=== PATIENT | male | born 1970 | race Caucasian/White ===

== ENCOUNTER → 2018-10-17 14:50 | Outpatient (CLI) | payer MEDICAID, SELFPAY ==
--- NOTE | 2018-10-17 14:52 | MR_ITS ---
MR knee RT wo con HISTORY: Right knee pain with instability ITS.REASON: RIGHT KNEE PAIN, RECURRENT RT KNEE INSTABILITY ORDERING PHYSICIAN: Jazmyn Quintanilla APRN PATIENT AGE: 48 years Comparison: None TECHNIQUE: Standard multiplanar multiecho sequences are performed without contrast. FINDINGS: The cruciate ligaments, collateral ligaments, patellar tendon, quadriceps tendon are intact. No meniscal tear. The patellar cartilage is well preserved. No fracture or dislocation. No bone bruise apparent. There is a small amount of fluid within the knee joint. A small subarticular cyst involves the head of the fibula measuring 11 x 5 mm. There is edema involving the medial head of the gastrocnemius at the knee joint with some heterogeneous echogenicity and irregularity of some of the fibers superiorly suggesting a partial tear of the medial head of the gastrocnemius. There is some subcutaneous edema in this region as well. This involves the medial aspect of the medial head of the gastrocnemius. IMPRESSION: 1. No evidence of internal derangement of the knee. 2. The findings are compatible with partial tear of the medial aspect of the medial head of the gastrocnemius muscle with underlying edema within the medial and proximal aspect of the leg.
== END ==
PROVIDERS: PCP Family Medicine; Visit Provider Nurse Practitioner Family
DX: M25.561 Pain in right knee (principal); M23.51 Chronic instability of knee, right knee
CPT/HCPCS: 73721

== ENCOUNTER 2018-10-18 11:02 | Outpatient (RCR) | payer MEDICAID, SELFPAY | END 2018-10-18 11:10 | disposition home or self-care (01) | LOC: PT 11:02 | PROVIDERS: Visit Provider Orthopaedic Surgery | DX: S86.111A Strain of other muscle(s) and tendon(s) of posterior muscle group at lower leg level, right leg, initial encounter (principal) | CPT/HCPCS: 97760 ==

== ENCOUNTER → 2020-01-12 11:36 | Outpatient (CLI) | payer OTHER, SELFPAY ==
--- NOTE | 2020-01-12 11:46 | XR_ITS ---
PROCEDURE: XR SHOULDER RT MIN 2V CLINICAL INDICATION: R SHOULDER PAIN, post fall in November. COMPARISON: No exams were available for comparison FINDINGS: No fracture or dislocation. No lytic or blastic change. There is normal mineralization. Mild degenerative arthritic changes are seen of the acromioclavicular and glenohumeral articulations of the right shoulder. Other findings:None. The visualized soft tissue structures are unremarkable. IMPRESSION: No acute findings. Mild degenerative right shoulder arthrosis. Dictated by: Sade Lozano 01/12/2020 12:20 Electronically signed by Sade Lozano in [place] 01/12/2020 12:20
== END ==
PROVIDERS: PCP Family Medicine; Visit Provider Nurse Practitioner
DX: M25.511 Pain in right shoulder (principal)
CPT/HCPCS: 73030

== ENCOUNTER → 2020-01-28 08:49 | Outpatient (CLI) | payer OTHER, SELFPAY ==
--- NOTE | 2020-01-28 08:53 | CA_ITS ---
APPROVED REPORT Rug Dyer Helper: KATELYN Laterality: Bilateral Study Quality: Good Indications: DIZZINESS HTN R/O TIA Doppler Spectral Velocity Analysis dICA (R) 73.40/32.00 cm/s dICA (L) 58.80/22.50 cm/s Laith (R) 74.10/17.40 cm/s Laith (L) 79.00/30.20 cm/s pICA (R) 79.70/25.40 cm/s pICA (L) 71.90/24.00 cm/s dCCA (R) 97.50/25.60 cm/s dCCA (L) 98.10/36.30 cm/s pCCA (R) 152.70/35.70 cm/s pCCA (L) 101.10/25.60 cm/s Vert (R) 56.30/16.60 cm/s Vert (L) 64.90/22.00 cm/s ICA/CCA 0.80 ICA/CCA 0.80 Findings The right carotid arterial system appeared to be normal without stenosis of the bulb or internal carotid artery. The left carotid arterial system appeared to be normal without stenosis of the bulb or internal carotid artery. Antegrade flow seen bilateral vertebral arteries. Conclusion The right carotid arterial system appeared to be normal without stenosis of the bulb or internal carotid artery. The left carotid arterial system appeared to be normal without stenosis of the bulb or internal carotid artery. Antegrade flow seen bilateral vertebral arteries. Electronically signed by : Sam Patterson MD 01/28/2020 16:15:39
== END ==
PROVIDERS: PCP Family Medicine; Visit Provider Nurse Practitioner
DX: R42 Dizziness and giddiness (principal); I10 Essential (primary) hypertension; H81.09 Meniere's disease, unspecified ear
CPT/HCPCS: 93880

== ENCOUNTER → 2020-02-11 15:28 | Outpatient (CLI) | payer OTHER, SELFPAY ==
--- NOTE | 2020-02-11 15:33 | MR_ITS ---
PROCEDURE: MR HEAD/BRAIN WO CON CLINICAL INDICATION: DIZZINESS, HEADACHE Rt arm drawn up and numbness, covered in sweat x1 month ago, headache, dizziness, blurred vision during episode. COMPARISON: CT HDWO CT HEAD W/O CONTRAST from 08/18/2015 TECHNIQUE: Routine multiplanar multi echo sequences are performed without gadolinium enhancement. FINDINGS: No midline shift, mass effect, intracranial hemorrhage, or hydrocephalus. There is no evidence of acute infarction. The cerebellopontine angles, cerebellum, and brainstem are unremarkable. There are some scattered T2 white matter hyperintensities which are nonspecific. These do not demonstrate restricted diffusion. The pituitary, optic chiasm, corpus callosum, and craniocervical junction have an unremarkable appearance. No mastoid effusion or sinus air-fluid level. There is opacification of a right posterior ethmoid air cell chronic in nature IMPRESSION: 1. No acute intracranial findings. 2. Nonspecific small T2 white matter hyperintensities. Differential diagnosis would include small ischemic gliotic foci or sequela from migraine headache or demyelinating process. 3. Chronic opacified right posterior ethmoid air cell Dictated by: Sam Patterson MD 02/12/2020 09:04 Sam Patterson MD in [place] 02/12/2020 09:04
== END ==
PROVIDERS: PCP Family Medicine; Visit Provider Nurse Practitioner
DX: R51 Headache (principal); R42 Dizziness and giddiness
CPT/HCPCS: 70551

== ENCOUNTER → 2020-02-13 13:34 | Outpatient (CLI) | payer OTHER, SELFPAY ==
--- NOTE | 2020-02-13 13:37 | MR_ITS ---
PROCEDURE: MR SHOULDER RT WO CON CLINICAL INDICATION: RIGHT SHOULDER PAIN S/P fall onto rt shoulder 2 months ago. Pt. States he felt a pop c/p pain and limited ROM. COMPARISON: No exams were available for comparison TECHNIQUE: Routine multiplanar multi echo sequences are performed without gadolinium enhancement. FINDINGS: There are mild osteoarthritic changes of the acromioclavicular joint with mild hypertrophy and minimal indentation upon the musculotendinous junction of the supraspinatus tendon superiorly with mild subacromial stenosis of 5 mm. There is increased T2 signal of the supraspinatus tendon with thickening of the supraspinatus tendon consistent tendinopathy/tendinosis. There does appear to be a full-thickness tear involving the posterior aspect of the supraspinatus tendon. Complete tear is not felt be present. There is some thickening with increased T2 signal the infraspinatus tendon consistent with tendinopathy/tendinosis. There is mild thickening of the subscapularis tendon with increased T2 signal consistent with tendinopathy/tendinosis. The teres minor tendon is intact. The bicipital tendon appears in place. Small amount fluid is present along the bicipital tendon sheath. There is mild superior location of the humeral head with a small shoulder joint effusion no definite labral tear. IMPRESSION: 1. Osteoarthritic changes of the acromioclavicular joint with mild hypertrophy and minimal impingement upon the musculotendinous junction of the supraspinatus tendon with subacromial stenosis. 2. Tendinopathy/tendinosis of the supraspinatus infraspinatus and subscapularis tendons with a full-thickness tear involving the posterior aspect of the supraspinatus tendon. A complete tear with muscle and tendon retraction is not present. 3. Some small shoulder joint effusion with mild osteoarthritic change with a small amount fluid in the bicipital tendon sheath which may be seen with tendinitis Dictated by: Sam Patterson MD 02/15/2020 11:03 Sam Patterson MD in [place] 02/15/2020 11:03
== END ==
PROVIDERS: PCP Family Medicine; Visit Provider Nurse Practitioner
DX: M25.511 Pain in right shoulder (principal)
CPT/HCPCS: 73221

== ENCOUNTER → 2020-04-19 10:58 | Outpatient (CLI) | payer OTHER, MEDICAID, SELFPAY ==
--- NOTE | 2020-04-19 | CA_ITS ---
APPROVED REPORT EXAM: Comprehensive 2D, Doppler, and color-flow Echocardiogram Thermite Welder: Florence Jonas CRT Ht: 6 ft 1 in Wt: 219lbs BSA: 2.24 BP: 120/80 mmHg Indications: Murmur, Hypertension/HDD, Pre-Op 2D Dimensions Aortic Root 2.99 cm LVOT 1.94 cm (M/F) 1.5-2.5 M-Mode Dimensions RVDd 2.68 cm (0.9-2.6) LA Diam 2.86 cm (1.9-4.0) LVDd 4.87 cm (3.5-5.7) Ao Diam 3.87 cm (2.0-3.7) LVDs 3.33 cm (3.5-5.7) IVSd 1.67 cm (0.6-1.1) PWd 0.62 cm (0.6-1.1) EF (Teich) 59.40% FS 31.60% EDV (Teich) 111.20 mL ESV (Teich) 45.10 mL LV Diastology E Decel Time 207.00 (160-240 msec) E/A Ratio 0.91 MED E' 6.20 (< 7 cm/sec) E'/MED E' Ratio 9.73 (>14) LAT A' 7.60 cm/s Aortic Valve AO Peak GR. 5.90 mmHg Mitral Valve MV A Velocity 66.00 (40-130 cm/s) E/A Ratio 0.91 MV Decel. Time 207.00 (160-240 ms) Pulmonary Valve PV Peak Velocity 92.00 (50-150 cm/s) Tricuspid Valve TR P. Velocity 243.00 cm/s RAP Estimate 10.00 mmHg RVSP 33.60 mmHg Left Ventricle Left atrium is mildly enlarged, left ventricle is normal size, mild concentric left ventricular hypertrophy, visually estimated ejection fraction 55% with no regional wall motion abnormality. Grade 1 diastolic dysfunction seen without tissue Doppler evidence of raise left atrial pressure. Right Ventricle Right atrium and right ventricle are normal size and contractility. Aortic Valve Aortic valve is minimally thickened and fibrosed, there is no aortic stenosis or aortic insufficiency. Mitral Valve Mitral valve is grossly normal, there is mild mitral regurgitation. Tricuspid Valve Tricuspid valve grossly normal, there is mild tricuspid regurgitation, tricuspid regurgitation jet velocity is inadequate for calculation of the right ventricular systolic pressure. Pulmonic Valve Pulmonic valve is poorly visualized. Great Vessels Aortic root is normal size. Pericardium No significant pericardial effusion noted. Conclusion 1. Mildly enlarged left atrium, normal left ventricular size, mild concentric left ventricular hypertrophy, visually estimated ejection fraction 55% with no regional wall motion abnormality, grade 1 diastolic dysfunction seen without tissue Doppler evidence of raise left atrial pressure. 2. Mild mitral and tricuspid regurgitation. 3. No significant pericardial effusion noted. Electronically signed by : Evan Cohen, 04/20/2020 04:42:19
[2020-04-19 12:45] LABS: Basophils # 0.1 K/mm3 (0-0.2); Basophils % 1.6 % (0.1-2.0); Eosinophils # 0.4 K/mm3 (0.0-0.4); Eosinophils % 5.9 % (0.1-12.0); Hematocrit 48.5 % (42.0-52.0); Hemoglobin 16.7 g/dL (14.1-18.0); Lymphocytes # 1.8 K/mm3 (0.7-4.5); Lymphocytes % 23.6 % (10-50); Mean Corpuscular HGB Conc 34.4 g/dL (31.8-35.4); Mean Corpuscular Hemoglobin 30.4 pg (27.0-31.2); Mean Corpuscular Volume 88.3 fl (80-94); Monocytes # 0.5 K/mm3 (0.1-1.0); Neutrophils # 4.7 K/mm3 (1.8-7.8); Neutrophils % 62.8 % (37.0-80.0); Platelet Count 210 K/mm3 (142-424); Red Cell Distribution Width 13.3 % (11.5-17.5); White Blood Count 7.5 K/mm3 (4.8-10.8)
[2020-04-19 13:13] LABS: Chloride 101 mmol/L (98-107); Potassium 4.5 mmoL/L (3.5-5.1); Sodium 138 mmol/L (136-145)
[2020-04-19 13:15] LABS: Alanine Aminotransferase 63 U/L (12-78); Aspartate Amino Transferase 74 U/L (17-59); Blood Urea Nitrogen 9 mg/dl (9-20); Estimated Glomerular Filt Rate 90 ml/min (>60); GFR (African American) 109 ML/MIN (>60)
[2020-04-19 13:16] LABS: Albumin Level 4.6 g/dl (3.5-5.0); Albumin/Globulin Ratio 1.5 (1.1-1.8); Alkaline Phosphatase 55 U/L (38-126); Anion Gap 10.5 mEq/L (5-15); Bilirubin,Total 0.5 mg/dl (0.2-1.3); Calcium 9.7 mg/dl (8.4-10.2); Carbon Dioxide 31 mmol/L (22.0-30.0); Glucose 97 mg/dl (74-100); Total Protein,Serum 7.6 g/dl (6.3-8.2)
[2020-04-19 13:33] LABS: Activated Partial Thrombo Time 23.8 seconds (23.6-34.0); INR 1.02 (0.9-1.1); Prothrombin Time 11.3 seconds (9.4-11.8)
== END ==
PROVIDERS: PCP Family Medicine; Visit Provider Family Medicine
DX: Z01.818 Encounter for other preprocedural examination (principal); R01.1 Cardiac murmur, unspecified; I10 Essential (primary) hypertension
CPT/HCPCS: 36415; 80053; 85025; 85610; 85730; 93306

== ENCOUNTER → 2020-05-10 09:29 | Outpatient (CLI) | payer OTHER, SELFPAY ==
[2020-05-10 11:26] LABS: Coronavirus 19 IgG Antibody Negative (Negative); Coronavirus 19 IgM Antibody Negative (Negative)
--- NOTE | 2020-05-11 10:55 | HMH.ANESCL ---
[facility] Anesthesia Checklist - Patient Identification Patient Identification: Arm Band - Structural Data Admitted From: Home Planned Operative Procedure/s: right shoulder arthroscopy Consent for Planned Operative Procedure(s) Verified: Yes Verified Documents: Surgical Consent, History and Physical - NPO Status Verified Time NPO: 00:00 - Additional verifications Anesthesia Reactions: No Hx Blood Transfusions: No Blood Transfusion Reaction: No - Airway Assessment C-Spine Mobility Assessed: Yes (mp2) TMJ Mobility Assessed: Yes Dentition: Poor Dentition - Neurological Assessment Level of Consciousness: Awake, Alert - Anesthesia Plan Anesthesia Risk discussed: Yes Anesthesia Plan: Verified ASA Class: III Anesthesia Type: General w/block (ISB- risks/benefits discussed. Pt Verbalized understanding) [facility] History I have reviewed the patient's past medical history: Yes Medical History: Reports:: Cerebrovascular Accident (Pt states mild stroke ~6 yrs ago. No residual deficits), Hypertension Denies:: Cancer, Diabetes Mellitus Type 1, Diabetes Mellitus Type 2, MRSA, Seizures *Have you ever received a pneumonia vaccine?: No *Have you received a flu vaccine this season?: No Other Medical History: Reports: Arthritis. Denies: Blood Transfusion Reaction Anesthesia experience/problems:: nac Laterality Cases: Right: Other Other Surgeries: Yes: Other Amputation: No Fractures: No - *Social History Smoking Status: Never smoker Alcohol Intake: never Alcohol Intake Frequency:: a few times a month Substance Use Type: denies use *Occupational Status:: employed Housing: house Household Members: spouse *Travel in the last 8 weeks: None Family Hx:: Cancer, Hypertension
== END ==
PROVIDERS: Visit Provider Orthopaedic Surgery
DX: Z01.818 Encounter for other preprocedural examination (principal); S46.011S Strain of muscle(s) and tendon(s) of the rotator cuff of right shoulder, sequela; M19.011 Primary osteoarthritis, right shoulder
CPT/HCPCS: 36415; 86328

== ENCOUNTER 2020-05-11 09:54 | Day surgery (SDC) | payer OTHER, MEDICAID, SELFPAY ==
[2020-05-05 14:59] VITALS: BMI 28.8
[2020-05-11] VITALS (10 sets, daily range): BP systolic 116–127; BP diastolic 57–91; PULSE 60–71; RESP 10–18; TEMP 36.1–38; O2SAT 95–98
--- NOTE | 2020-05-11 11:00 | HMH.ANESCL ---
[facility] Anesthesia Checklist - Patient Identification Patient Identification: Arm Band - Structural Data Admitted From: Home Planned Operative Procedure/s: Right Shoulder Arthroscopy, SAD, RTC Repair, Poss Tenotomy vs Tenodesis Consent for Planned Operative Procedure(s) Verified: Yes Verified Documents: Surgical Consent, History and Physical - NPO Status Verified Time NPO: 00:00 - Additional verifications Anesthesia Reactions: No Hx Blood Transfusions: No Blood Transfusion Reaction: No - Airway Assessment C-Spine Mobility Assessed: Yes (mp2) TMJ Mobility Assessed: Yes Dentition: Poor Dentition - Neurological Assessment Level of Consciousness: Awake, Alert - Anesthesia Plan Anesthesia Risk discussed: Yes Anesthesia Plan: Verified ASA Class: II Anesthesia Type: General w/block (ISB-risks/benefits explained. Pt verbalizes understanding) [facility] History I have reviewed the patient's past medical history: Yes Medical History: Reports:: Cerebrovascular Accident (Pt states mild stroke ~6 yrs ago. No residual deficits), Hypertension Denies:: Cancer, Diabetes Mellitus Type 1, Diabetes Mellitus Type 2, MRSA, Seizures *Have you ever received a pneumonia vaccine?: No *Have you received a flu vaccine this season?: No Other Medical History: Reports: Arthritis. Denies: Blood Transfusion Reaction Anesthesia experience/problems:: nac Laterality Cases: Right: Other Other Surgeries: Yes: Other Amputation: No Fractures: No - *Social History Smoking Status: Never smoker Alcohol Intake: never Alcohol Intake Frequency:: a few times a month Substance Use Type: denies use *Occupational Status:: employed Housing: house Household Members: spouse *Travel in the last 8 weeks: None Family Hx:: Cancer, Hypertension
--- NOTE | 2020-05-11 17:53 | HMH.ANESI ---
[facility] Anesthesia Record Part I Intake, IV Amount: 1,400 Estimated blood loss (mL): 25 Urine output (mL): 0 Blood Products used (#): none Blood Pressure: 127/81 SaO2: 96 Pulse Rate: 71 Respiratory Rate: 10 Temperature: 97.0 F Patient is:: Drowsy, Nasal O2, Stable Stable to PACU at:: 17:55
--- NOTE | 2020-05-11 18:05 | HMH.OPNOTE ---
Date of procedure: 05/11/20 Pre-op Diagnosis:: R shoulder RTC tear Post-op Diagnosis:: R shoulder high-grade partial thickness RTC tear, LHBT tendinopathy with SLAP tear Procedure performed:: R shoulder arthroscopy, intra-articular debridement, biceps tenotomy; open RTC repair Surgeon:: Carol Shaikh MD Post Anesthesia Room Nurse(s):: Pippa Martínez ORACLE APPLICATIONS ANALYST:: Paulie Garrett Anesthesia: GETA, regional (interscalene block) Estimated blood loss (mL): 25 Clinical Note:: 50-year-old [id number] gentleman with R shoulder pain after an injury in December 2019. At that time he fell on the right shoulder and felt a pop, with persistent pain. He suffered heatstroke around the same time and was placed off work for this. When he went back light duty to work he noticed that lifting even 10 pounds was extremely painful. 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 He has had a difficult time working and has taken 6-7 Advil per day to cope with this. He has noticed a decrease in his strength as well. Medical history includes hypertension and chronic migraines in addition to M?ni?re's disease. He has no known drug allergies and takes hydrochlorothiazide and benazepril?hydrochlorothiazide daily. MRI revealed a rotator cuff tear; high-grade partial thickness versus full thickness without retraction. I discussed treatment options with the patient and given his age, dominant arm affected, and nature of his work, I recommended surgical intervention. He was sent for medical and cardiac clearance, which was obtained. I discussed the procedure with the patient, the expected perioperative and long-term outcome. I discussed the risks of surgery with the patient, including but not limited to: bleeding, infection, neurovascular damage, compartment syndrome of the upper extremity and/or torso from fluid extravasation, risk of stroke from hypotensive anesthesia in the beachchair position, risk of RTC non-healing or retearing, risk of the RTC being irrepairable, risk of continued pain and post-operative stiffness, and the risk that additional procedures may be required in the future. The patient vocalized understanding of these risks and provided informed consent for the procedure. Operative findings:: SLAP tear, type II superior/anterior labral fraying biceps tendinopathy with hyperemia high-grade partial thickness RTC tear, posterior supraspinatus/anterior infraspinatus Operative note:: The patient was identified in preoperative holding and the right shoulder signed by myself. Consent was reviewed with the patient and all questions answered. Interscalene nerve block was performed by anesthesia and the patient was taken to the OR. He was placed supine on the operative table, 2g Ancef was infused and general anesthesia induced. The patient was then positioned into the beachchair position with the head in a neutral position and all bony prominences padded. The right shoulder was then prepped and draped in the usual sterile fashion for shoulder arthroscopy. Timeout was performed, identifying the correct patient, correct procedure, and correct site. I began the procedure by making a standard posterior viewing portal on the R shoulder, through which a 30 degree arthroscope was inserted into the glenohumeral joint. There was moderate labral fraying superiorly and anteriorly. Using a spinal needle and an outside-in technique an anterior working portal was established and a 7 mm cannula placed. Through this cannula a probe was placed to palpate and examine the joint. In addition to labral fraying, a type II SLAP tear was seen. The probe was used to pull the biceps into the joint further and hyperemia of the tendon was seen along the portion in the sheath, with some longitudinal tearing. A spinal needle was used to ochoa the tendon, through which a PDS suture was shuttled and used to tag the biceps. Arthroscopic scissors were used t
--- NOTE | 2020-05-12 10:32 | HMH.ANESII ---
[facility] Anesthesia Record Part II Discharge Time: 18:15 Destination: Surgical Day Care (OP Surgery) PACU nurse assessment reviewed?: Yes Patient Condition:: Good Anesthesia Complications:: None Swallowing reflex intact?: Yes Cyanosis?: No Blood Pressure: 116/81 Pulse Rate: 62 Temperature: 97.4 F Mental Status: Alert & Oriented Pain level:: 0 Nausea and/or vomitting:: None Intake, IV Amount: 0
[2020-05-12 10:33] VITALS: BP 116/81; PULSE 62; TEMP 36.3
== END 2020-05-11 18:46 | disposition home or self-care (01) ==
LOC: OR 09:57
PROVIDERS: PCP Family Medicine; Visit Provider Orthopaedic Surgery
PROC: (CPT 29805; principal; 2020-05-11 11:45)
DX: S46.011A Strain of muscle(s) and tendon(s) of the rotator cuff of right shoulder, initial encounter (principal); I10 Essential (primary) hypertension; W19.XXXA Unspecified fall, initial encounter; S43.431A Superior glenoid labrum lesion of right shoulder, initial encounter; S46.111A Strain of muscle, fascia and tendon of long head of biceps, right arm, initial encounter; S43.421A Sprain of right rotator cuff capsule, initial encounter
CPT/HCPCS: 23410; 29807; 29828; 96374; C1713; J2405

== ENCOUNTER 2020-07-10 14:12 | Emergency (ER) | payer OTHER, SELFPAY ==
[2020-07-10 14:45] VITALS: BP 133/86; PULSE 84; RESP 18; TEMP 37; O2SAT 98; BMI 28.3
--- NOTE | 2020-07-10 15:13 | HMH.EDUTC ---
[facility] Disposition Clinical Impression: Exposure to COVID-19 virus Disposition: Home, Self-Care Condition on Discharge: Good Instructions: DI for COVID-19 (Suspected or Confirmed ), Coronavirus Disease 2019, Preventing the Spread of Coronavirus Discharge Instructions Additional Instructions: *Monitor Temp, Over the counter Motrin or Tylenol as directed/as needed Tylenol every 4 hours and Motrin every 6 hours (as long as your family doctor has told you that you can take it) for fever or pain. and straight to ER if unable to lower temp less than 101.0 after medication given *Warm salt water gargles may help to soothe the throat *Throat Lozenges *Warm fluids like tea with honey may help to soothe the throat *Sleep elevated *Humidifier/Vaporizer Follow up IMMEDIATELY for new or worsening symptoms or no Noticeable improvement over the next 48-72 hours. 911 for difficulty breathing or swallowing You were tested for today for COVID19 your test result should be back in the next 24-48 hours, you may call to the [facility] to see if your test results are back in the next 48 hours [phone] [facility] hours are 9am-9pm You was given a handout with instructions for Self Quarantine and Self isolation for while you wait on test results and what to do if they are positive If you are positive the Health Dept will be contacting you also Referrals: Naveen Oquendo MD [Primary Care Provider] - As needed Forms: Work/School Release Time of Disposition: 15:15 Medical Decision Making - Tariq Inquiry Pt receiving controlled substance: No Tariq was queried for this patient: No Vital Signs: 07/10/20 14:45 Temperature 98.6 F Temperature Source Oral Pulse Rate [Right Brachial] 84 Respiratory Rate 18 Blood Pressure [Right Arm] 133/86 Blood Pressure Mean [Right Arm] 101 Blood Pressure Source [Right Arm] Automatic Cuff Blood Pressure Position [Right Arm] Sitting 02 Sat by Pulse Oximetry 98 Oxygen Delivery Method Room Air Orders (Tests/Meds): ORDERS Category Date Time Status Covid-19 Nasal PCR ([facility]) Routine Lab 07/10/20 14:17 Ordered [facility] HPI - General Stated complaint: covid test Time Seen by Provider: 07/10/20 15:13 Mode of Arrival: Ambulatory Source of Information: Patient Limitations: No Limitations Description of Symptoms (Recalled from Triage Doc. by RN): COVID TEST D/T EXPOSURE. DENIES SYMPTOMS HEENT Symptoms (Recalled from RN notes): No Resp Symptoms (Recalled from RN notes): No Skin Symptoms (Recalled from RN notes): No MS Symptoms (Recalled from RN notes): No Functional Status (Recalled from RN notes): WNL - History of Present Illness Provider Complaint: Patient state that his daughter in law that lives with them recently tested positive for COVID and he has been having bodyaches, chills and wanted to get tested - Related Data Home Medications Medication Instructions Recorded Confirmed Benazepril/Hydrochlorothiazide 1 each PO DAILY 11/03/17 06/08/20 [Benazepril-Hctz 20-25 mg Tab] hydroCHLOROthiazide 12.5 mg PO DAILY 11/03/17 06/08/20 [Hydrochlorothiazide 12.5mg Tab] Aspirin [Aspirin 81mg chewable 81 mg PO DAILY 05/11/20 06/08/20 tab] Previous Rx's Medication Instructions Recorded oxycodone-acetaminophen 10 mg-325 1 tab PO Q6H PRN 3 Days #12 tab 05/21/20 mg tablet Allergies Allergy/AdvReac Type Severity Reaction Status Date / Time No Known Drug Allergies Allergy Unknown Verified 06/08/20 10:03 - Worker's Comp Is this a Worker's Comp case?: No [facility] History - Hepatitis A Screen Drug use history?: No High risk sexual behaviors?: No History of sexually transmitted infection?: No Currently employed?: No Childcare worker?: No Do you have indoor plumbing?: Yes Do you have electricity?: Yes Attestation statement:: This patient has been screened for Hepatitis A risk factors. I have reviewed the patient's past medical history: Yes Medical History: Reports:: Cerebrov
[2020-07-10 15:21] VITALS: BP 133/86; PULSE 84; RESP 18; TEMP 37; O2SAT 98
--- NOTE | 2020-07-10 20:37 | PC.NURSE ---
PT NOTIFIED OF POSITIVE COVID RESULT
== END 2020-07-10 15:30 | disposition home or self-care (01) ==
PROVIDERS: Emergency Provider Nurse Practitioner; PCP Family Medicine
DX: U07.1 COVID-19 (principal); I10 Essential (primary) hypertension; Z86.73 Personal history of transient ischemic attack (TIA), and cerebral infarction without residual deficits; Z79.899 Other long term (current) drug therapy
CPT/HCPCS: 99202; G0463; U0003

== ENCOUNTER → 2020-08-27 08:27 | Outpatient (CLI) | payer OTHER, SELFPAY ==
--- NOTE | 2020-08-27 08:34 | XR_ITS ---
PROCEDURE: XR SHOULDER RT MIN 2V CLINICAL INDICATION: s/p R shoulder arthroscopy Pain COMPARISON: CR XR SHOULDER RT MIN 2V from 01/12/2020 FINDINGS: There has been placement of 2 anchor screws within the right proximal humerus with mild osteoarthritic changes noted of the humerus and acromioclavicular joint. The joint spaces are well-preserved. No significant degenerative/arthritic changes. No erosive changes evident. Other findings:None. IMPRESSION: Postsurgical changes with mild osteoarthritis Dictated by: Sam Patterson MD 08/27/2020 16:08 Sam Patterson MD in [place] 08/27/2020 16:08
== END ==
PROVIDERS: PCP Family Medicine; Visit Provider Orthopaedic Surgery
DX: S43.431D Superior glenoid labrum lesion of right shoulder, subsequent encounter; S46.011D Strain of muscle(s) and tendon(s) of the rotator cuff of right shoulder, subsequent encounter
CPT/HCPCS: 73030

== ENCOUNTER 2020-11-01 11:00 | Outpatient (RCR) | payer OTHER, SELFPAY ==
--- NOTE | 2020-05-25 09:01 | HMH.OTOPEV ---
OT Inpatient Evaluation Rehab OT Outpatient Eval Start: 05/25/20 08:46 Freq: Status: Active Protocol: Document 05/25/20 08:46 ANITRA (Rec: 05/25/20 09:01 ANITRA [id number]) Electronically Signed By Lindsey Scott OT 05/25/20 08:46 Outpatient Therapy Subjective History Subjective History 50 year old male referred to skilled OP OT services for s/p shoulder arthroscopy, intra- articular debridement, biceps tenotomy; open RTC repair. Operative findings: SLAP tear, type II, superior/anterior labral fraying, biceps tendinopathy with hyperemia, high-grade partial thickness RTC tear, posterior supraspinatus/anterior infraspinatus. 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 Strength Symptom Type Ache Symptoms Relieved By Brace/Support Symptoms Aggravated By Physical Activity Prior Functional Limitations None Current Functional Limitations Housework Symptom Description Constant but Variable Level of pain today (0-10) 5 Pain scale - at its best (0-10) 5 Pain scale - at its worst (0-10) 9 Shoulder/Elbow Eval Shoulder Objective Measurements Shoulder ROM Right Shoulder Abduction Passive Range of 30 Motion (degrees) Shoulder Flexion Passive Range of Motion 30 (degrees) Shoulder External Rotation Passive Range 0 of Motion (degrees) Shoulder Internal Rotation Passive Range 20 of Motion (degrees) pain with active ROM shoulder exam right standard Shoulder MMT Shoulder Abduction Strength Grade 2 Poor Shoulder Flexion Strength Grade 2 Poor Shoulder Horizontal Abduction Strength 2 Poor Grade Infraspinatus/Teres Minor Strength Grade 2 Poor Shoulder External Rotation Strength 2 Poor Grade Shoulder Internal Rotation Strength 2 Poor Grade Elbow Objective Measurements OT Outpatient Assessment Impairments Problems/Impairments Impaired Range of Motion, Impaired Strength,Impaired Endurance,Subjective C/O Pain Prognosis Rehab Potential Good Clinical Impression Consistent with Diagnosis Yes Short Term Goals Number of Weeks 2 Increase Range of Motion Yes: PROM R UE flex: 50; ABD: 50; ER: 30; IR: 40 Increase Strength
== END 2020-11-01 11:05 | disposition home or self-care (01) ==
LOC: OT 11:00
PROVIDERS: PCP Family Medicine; Visit Provider Orthopaedic Surgery
DX: S46.011D Strain of muscle(s) and tendon(s) of the rotator cuff of right shoulder, subsequent encounter (principal); S43.431D Superior glenoid labrum lesion of right shoulder, subsequent encounter
CPT/HCPCS: 97014; 97110; 97140; 97164; 97165; 97530; G0283

== ENCOUNTER → 2020-11-06 08:32 | Outpatient (CLI) | payer OTHER, SELFPAY ==
--- NOTE | 2020-11-06 08:32 | MR_ITS ---
PROCEDURE INFORMATION: Exam: MR Right Upper Extremity Joint Without Contrast; Shoulder Exam date and time: 11/06/2020 8:32 AM Age: 50 years old Clinical indication: Pain; Right; Prior surgery; Surgery date: 6+ months; Surgery type: RT shoulder rotator cuff repair 04/2020; Additional info: RT shoulder pain S/P rotator cuff repair TECHNIQUE: Imaging protocol: MR of the Right upper extremity without contrast. Exam focused on the shoulder. COMPARISON: MR SHOULDER RT WO CON 02/13/2020 1:55 PM FINDINGS: Bones and cartilage: New postoperative changes are identified, with magnetic susceptibility artifact associated with surgical hardware within the humeral head. Additional foci of magnetic susceptibility are identified within the soft tissues adjacent to the right shoulder. Acromioclavicular arthropathy. There is effacement of the tissue planes underlying the acromion process. Joint spaces: Minimal fluid within the glenohumeral joint, without significant effusion. Glenoid labrum: Increased signal intensity within the superior aspect of the labrum. Labral tear is suggested. There is minimal increased signal intensity within the posterior aspect of the labrum, equivocal for tear. Supraspinatus tendon: See below. Infraspinatus tendon: Full-thickness tears of the posterior fibers of the supraspinatus tendon and anterior fibers of the infraspinatus tendon. There is a small amount of fluid within the subdeltoid/subacromial bursa. Subscapularis tendon: There is a decrease in caliber of the subscapularis tendon suggestive of partial tear. Teres minor tendon: No evidence of tear. Tendon of biceps brachii: There is a progressive decrease in caliber of the long of the biceps tendon within the proximal bicipital groove, and partial tear is suggested. Glenohumeral ligaments: Heterogeneous signal intensity of the inferior glenohumeral ligament, which is likely post-traumatic or due to adhesive capsulitis. Muscles: No visualized acute abnormality. Soft tissues: See Bones and cartilage finding. IMPRESSION: 1. Full-thickness tears of the posterior fibers of the supraspinatus tendon and anterior fibers of the infraspinatus tendon. There is a small amount of fluid within the subdeltoid/subacromial bursa. 2. New postoperative changes. 3. Decrease in caliber of the subscapularis and long head of the biceps tendons, suggestive of partial tears. 4. Heterogeneous signal intensity of the inferior glenohumeral ligament, which is likely post-traumatic or due to adhesive capsulitis. 5. Increased signal intensity within the superior aspect of the labrum. Labral tear is suggested. 6. Acromioclavicular arthropathy. There is effacement of the tissue planes underlying the acromion process. 7. Additional findings described above.
== END ==
PROVIDERS: PCP Family Medicine; Visit Provider Orthopaedic Surgery
DX: M75.101 Unspecified rotator cuff tear or rupture of right shoulder, not specified as traumatic (principal); S43.431D Superior glenoid labrum lesion of right shoulder, subsequent encounter
CPT/HCPCS: 73221

== ENCOUNTER 2021-08-24 11:00 | Outpatient (RCR) | payer OTHER, SELFPAY | END 2021-08-24 11:05 | disposition home or self-care (01) | LOC: PT 11:00 | PROVIDERS: PCP Family Medicine; Visit Provider Orthopaedic Surgery | DX: M75.01 Adhesive capsulitis of right shoulder (principal) | CPT/HCPCS: 97010; 97014; 97016; 97110; 97140; 97163; 97164; G0283 ==

== ENCOUNTER → 2021-09-19 10:27 | Outpatient (CLI) | payer OTHER, SELFPAY ==
--- NOTE | 2021-09-19 10:40 | XR_ITS ---
FINAL REPORT CLINICAL HISTORY: COUGH, hx covid last year FINDINGS: Two views of the chest were obtained. The heart size and pulmonary vascularity are within normal limits. The mediastinum is normal. No acute pulmonary abnormality is identified. There is no pneumothorax. There is postoperative change in the right shoulder. IMPRESSION: No active cardiopulmonary disease. Reviewed, Interpreted and Dictated by Davie Edward III, MD Transcribed by Yobany Fabian Authenticated by Davie Edward III, MD on 09/19/2021 01:24:50 PM [facility]
--- NOTE | 2021-09-19 10:40 | XR_ITS ---
FINAL REPORT CLINICAL HISTORY: LT SHOULDER PAIN FINDINGS: LEFT SHOULDER: 3 views of the left shoulder were obtained. There is no acute fracture or dislocation. There are mild degenerative changes of the acromioclavicular and the glenohumeral joints. There is no soft tissue abnormality. IMPRESSION: Mild degenerative change. Reviewed, Interpreted and Dictated by Davie Edward III, MD Transcribed by Yobany Fabian Authenticated by Davie Edward III, MD on 09/19/2021 02:07:[address] [facility]
== END ==
PROVIDERS: PCP Family Medicine; Visit Provider Nurse Practitioner Family
DX: M25.512 Pain in left shoulder (principal); R50.9 Fever, unspecified
CPT/HCPCS: 71046; 73030

== ENCOUNTER → 2021-09-23 14:17 | Outpatient (CLI) | payer OTHER, SELFPAY ==
--- NOTE | 2021-09-23 14:20 | MR_ITS ---
FINAL REPORT CLINICAL HISTORY: LEFT ANTERIOIR SHOULDER PAIN , LROM, NKI, LEFT NECK SWELLING DOWN TO SHOULDER, R/O TOTATOR CUFF TEAR FINDINGS: Multiplanar MR imaging of the left shoulder was performed without contrast. There is a focal full-thickness tear at the footprint of the supraspinatus tendon measuring 11 mm in AP dimension. There is also partial thickness articular surface tear of the subscapularis tendon involving less than 50%. There is mild AC joint arthrosis. A small amount of fluid is seen in the subacromial/subdeltoid bursa. There is a subchondral cyst in the greater tuberosity. The glenoid labrum is intact. The long head of the biceps tendon is intact. No significant glenohumeral joint effusion is seen. There is no evidence of fracture or dislocation. The musculature is intact. There is no evidence of soft tissue mass. IMPRESSION: Full-thickness tear of the supraspinatus tendon. Partial-thickness articular surface tear of the subscapularis tendon. Reviewed, Interpreted and Dictated by Davie Edward III, MD Transcribed by Ciara Monaco Authenticated by Davie Edward III, MD on 09/23/2021 04:10:01 PM [facility]
== END ==
PROVIDERS: PCP Family Medicine; Visit Provider Nurse Practitioner Family
DX: M25.512 Pain in left shoulder (principal)
CPT/HCPCS: 73221

== ENCOUNTER → 2021-10-04 12:55 | Outpatient (CLI) | payer OTHER, SELFPAY ==
[2021-10-04 13:30] VITALS: PULSE 72; PULSE 79
== END ==
PROVIDERS: PCP Family Medicine; Visit Provider Nurse Practitioner Family
DX: R05.9 Cough, unspecified (principal)
CPT/HCPCS: 94060; 94640

== ENCOUNTER → 2021-10-10 07:43 | Outpatient (CLI) | payer OTHER, SELFPAY ==
--- NOTE | 2021-10-10 07:47 | MR_ITS ---
FINAL REPORT CLINICAL HISTORY: RIGHT SHOULDER PAIN. HX RIGHT SHOULDER SURGERY IN . RIGHT SHOULDER PAIN. PAIN WHEN RAISING ARM ABOVE HEAD WITH POPPING. COMPARISON: 02/13/2020 FINDINGS: Multi planar MR imaging of the right shoulder was performed. There is significant magnetic susceptibility artifact consistent with interval surgery. There is orthopedic hardware in the greater tuberosity of the humerus. Multiple small foci of magnetic susceptibility artifact are also seen in the superior humerus. There is marked thinning of the distal supraspinatus tendon seen on coronal images 7 and 8 of series 5. The infraspinous tendon is intact. There is no abnormal fluid in the subacromial/subdeltoid bursa. The anterior and posterior glenoid yajaira appear intact. The biceps tendon appears intact. There is moderate hypertrophic change of the AC joint. IMPRESSION: Interval postoperative changes with marked thinning of the distal supraspinatus tendon. Reviewed, Interpreted and Dictated by Valentin Hogan MD Transcribed by Yadira Ardon Authenticated by Valentin Hogan MD on 10/10/2021 12:16:[address] [facility]
== END ==
PROVIDERS: PCP Family Medicine; Visit Provider Orthopaedic Surgery
DX: M25.511 Pain in right shoulder (principal)
CPT/HCPCS: 73221

== ENCOUNTER → 2022-02-16 13:24 | Outpatient (POV) | payer OTHER, SELFPAY ==
[2022-02-16 13:38] VITALS: BP 136/62; PULSE 93; RESP 20; BMI 31.2
--- NOTE | 2022-02-16 14:02 | EXP.PAIN.OV ---
HPI Data of Consult Patient: new to practice Consult date: 02/16/22 Requesting Physician: Pippa Castillo APRN Primary Care Provider: Yulisa Anton APRN Consult Narrative Reason for consult: Bilateral shoulder pain, left arm pain History of present illness: Mr. Jacob is a 51 year old male who presents Today as a new patient. He is a referral from Iman Adair. Patient rates his pain a 8 out of 10. He states his pain is primarily in his bilateral shoulders with more pain on his left shoulder that radiates into his left arm. Patient states this is a throbbing, sharp sensation that is worse with increased activity. Patient has limited range of motion. Patient states he has had injuries in the past including when he fell off a roof and landed on his left arm. Patient has a history of bilateral shoulder surgery. His right arm was operated on by Dr. Padilla who did a rotator cuff repair as well as working on his bicep and and 2 tendons. This surgery had to be revised by Dr. Monterroso. Patient has seen physical therapy for this right shoulder which did provide some relief. Patient's left shoulder recently had surgery on it and postoperatively had an incident where he tripped and fell landing on this side. Patient states he is scheduled to have a MRI next week. At that time he will find out what they are planning on doing. 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 He states he needs a right knee replacement. Patient is not currently on any scheduled medications. His Tariq is [id number]. It has been reviewed and appropriate. CC: Pippa Castillo APRN [facility] Medical History (Updated 02/16/22 @ 14:12 by Pippa Castillo APRN) Arthropathy of right shoulder Hypertension Rotator cuff arthropathy of right shoulder Surgical History (Updated 02/16/22 @ 13:42 by Merari Velásquez RN) History of arthroscopy of left shoulder Family History (Updated 02/16/22 @ 13:40 by Merari Velásquez RN) Other No significant family history Social History Smoking Status: Never smoker alcohol intake: never substance use type: denies use current occupational status: unemployed Travel in the last 8 weeks: None household members: spouse housing: house current occupational exposures/hazards: Yes Review of Systems Review of Systems Review of systems:: pertinent systems reviewed and negative unless documented below Review of systems (narrative): Review of Systems: General: No recent weight changes, no fever, no sleep disturbances Respiratory: No cough, no shortness of air, no recurring pulmonary infections Cardiovascular/peripheral vascular: No chest pain, no palpitations, no edema, no shortness of breath Gastrointestinal: No new onset incontinence, normal bowel movements reported Genitourinary: No new onset incontinence Musculoskeletal: Bilateral shoulder pain, left arm pain Psychiatric: [Normal mood/affect] Neurological: [Denies weakness in extremities], [denies balance issues] Meds Home Medications and Allergies Home Medications Medication Instructions Recorded Confirmed Type hydrochlorothiazide 12.5 mg tablet 12.5 mg PO DAILY Fluid 11/03/17 02/16/22 History aspirin 81 mg chewable tablet 81 mg PO DAILY HEART HEALTH 05/11/20 11/26/20 History amlodipine 5 mg-benazepril 20 mg 1 cap PO DAILY blood pressure 02/16/22 02/16/22 History capsule diclofenac sodium 75 mg 75 mg PO BID Pain 02/16/22 02/16/22 History tablet,delayed release New Prescriptions to Start Prescriptions: Allergies Allergy/AdvReac Type Severity Reaction Status Date / Time No Known Drug Allergies Allergy Unknown Verified 11/26/20 15:32 Objective Vital signs: Pulse Resp BP 93 H 20 136/62 02/16/22 13:38 02/16/22 13:38 02/16/22 13:38 Narrative: Physical Exam: General: Alert and oriented x3, no acute distress, pleasant and cooperative Lungs: Respirations even and unlabored, symmetrical chest ex
== END ==
PROVIDERS: PCP Nurse Practitioner Family; Visit Provider Nurse Practitioner Family
DX: M25.511 Pain in right shoulder (principal); M25.512 Pain in left shoulder; M79.602 Pain in left arm; M25.561 Pain in right knee
CPT/HCPCS: 99202; G0463

== ENCOUNTER → 2022-03-22 09:03 | Outpatient (CLI) | payer OTHER, SELFPAY ==
[2022-03-22 12:01] LABS: Creatine Kinase 118 U/L (55-170)
[2022-03-22 12:13] LABS: Intact Parathyroid Hormone 41.3 pg/mL (7.5-53.5)
[2022-03-29 18:09] LABS: Calcium, Ionized 5.3 mg/dL (4.5-5.6)
[2022-03-30 13:23] LABS: Aldolase 7.5 U/L (3.3-10.3)
== END ==
PROVIDERS: PCP Family Medicine; Visit Provider Specialist
DX: R25.2 Cramp and spasm (principal); G47.30 Sleep apnea, unspecified; R06.83 Snoring
CPT/HCPCS: 36415; 82085; 82330; 82550; 83970; 95806

== ENCOUNTER → 2022-05-18 12:47 | Outpatient (POV) | payer OTHER, SELFPAY ==
[2022-05-18 13:18] VITALS: BP 136/95; PULSE 80; RESP 18; O2SAT 95; BMI 29.9
--- NOTE | 2022-05-18 13:40 | EXP.PAIN.SOA ---
[facility] Pain Management SOAP Note Subjective:: Patient is a pleasant 52-year-old male who presents today for follow-up. We are currently treating the patient for bilateral shoulder pain, left arm pain, right knee pain. Today he rates his pain an 8 out of 10. Patient denies any new trauma or injury. Patient denies any change to location or type of pain he experiences. Patient states he has a lot of pain in his bilateral shoulders that he is seeing an orthopedic doctor in [facility]. Patient states he has recently been to see Dr. Monterroso who has talked about doing a surgical procedure to remove scar tissue in his right shoulder. Patient states he is scheduled to see him this month for more specifics. Patient states he continues to have a lot of pain regarding a fall where he came off of a roof and landed on his left arm. He has had previous shoulder surgery by Dr. Padilla who did a rotator cuff repair along with bicep repair that had to be revised by Dr. Monterroso. Patient has seen physical therapy in the past that did provide some relief. Patient has been to get his recent MRI of his right shoulder. Patient states he needs a right knee replacement as well. Patient has a history of M?ni?re's disease. Patient is prescribed compounding cream that he states does provide significant relief on his right shoulder however he does not notice improvement with the left. His Tariq is [id number]. It has been reviewed and appropriate. Review of Systems: General: No recent weight changes, no fever, no sleep disturbances Respiratory: No cough, no shortness of air, no recurring pulmonary infections Cardiovascular/peripheral vascular: No chest pain, no palpitations, no edema, no shortness of breath Gastrointestinal: No new onset incontinence, normal bowel movements reported Genitourinary: No new onset incontinence Musculoskeletal: Bilateral shoulder pain Psychiatric: [Normal mood/affect] Neurological: [Denies weakness in extremities], [denies balance issues] Objective:: Physical Exam: General: Alert and oriented x3, no acute distress, pleasant and cooperative Lungs: Respirations even and unlabored, symmetrical chest expansion Eyes: PERRL Musculoskeletal: Flexion and extension of bilateral shoulders somewhat guarded secondary to pain, [antalgic gait noted] Neurological: Speech clear, no gross sensory deficit Assessment:: Bilateral shoulder pain, right knee pain, left arm pain Plan:: Patient continues to experience significant pain in his bilateral shoulders. I did discuss with the patient that he would benefit from injective therapy in the future however with possible upcoming surgery we will hold off on this plan of care. I will order the patient tizanidine 4 mg at bedtime and provide a 1 month supply of this medication. Patient will return to clinic in 1 month for reevaluation of symptoms, medication refill if indicated and follow-up. Patient has been instructed to contact the clinic with any concerns before the next appointment. Dr. Martin has reviewed this note and agrees with this plan of care. This note was dictated using voice recognition software and make contain errors or omissions. [facility] Disclaimer: The information contained in this section may have been updated after the patient was seen, as this information can be updated by other users. Medical History (Updated 05/02/22 @ 16:52 by Kimberli Aguilar MD) Aftercare following right shoulder joint replacement surgery Arthropathy of right shoulder Hypertension Rotator cuff arthropathy of right shoulder Surgical History (Updated 02/16/22 @ 13:42 by Merari Velásquez RN) History of arthroscopy of left shoulder Family History (Updated 02/16/22 @ 13:40 by Merari Velásquez RN) Other No significant family history Social History (Updated 03/21/22 @ 09:57 by Lindsey Cervantes) Smoking Status: Never smoker alcohol intake: current substance use type: denies use current occupational status: une
== END | disposition home or self-care (01) ==
PROVIDERS: PCP Nurse Practitioner Family; Visit Provider Nurse Practitioner Family
DX: M25.511 Pain in right shoulder (principal); M25.512 Pain in left shoulder; M25.561 Pain in right knee; M79.601 Pain in right arm; Z79.899 Other long term (current) drug therapy
CPT/HCPCS: 99212; G0463

== ENCOUNTER → 2022-06-22 14:08 | Outpatient (POV) | payer OTHER, SELFPAY ==
--- NOTE | 2022-06-22 14:42 | EXP.PAIN.SOA ---
[facility] Pain Management SOAP Note Subjective:: Patient is a pleasant 52-year-old male who presents today for follow-up. We are currently treating the patient for bilateral shoulder pain, left arm pain, right knee pain. Today he rates his pain a 6 out of 10. Patient denies any new trauma or injury. Patient denies any change to location or type of pain he experiences. Patient previously was started on tizanidine 4 mg at bedtime however he states he did not notice significant improvement with this medication. Patient is currently seeing Dr. Monterroso who did his left shoulder revision following Dr. Padilla. Patient continues to experience significant pain with his shoulder and states that Dr. Monterroso plans on deciding if he is going to have additional surgery within the next 3 months. Patient states he continues to experience episodes of frozen shoulder. Patient does have a history of M?ni?re's disease. Patient was prescribed compounding cream that he states does help with his low back pain however does nothing for his shoulder. His Tariq is [id number]. Its been reviewed and appropriate. Review of Systems: General: No recent weight changes, no fever, no sleep disturbances Respiratory: No cough, no shortness of air, no recurring pulmonary infections Cardiovascular/peripheral vascular: No chest pain, no palpitations, no edema, no shortness of breath Gastrointestinal: No new onset incontinence, normal bowel movements reported Genitourinary: No new onset incontinence Musculoskeletal: Left shoulder pain Psychiatric: [Normal mood/affect] Neurological: [Denies weakness in extremities], [denies balance issues] Objective:: Physical Exam: General: Alert and oriented x3, no acute distress, pleasant and cooperative Lungs: Respirations even and unlabored, symmetrical chest expansion Eyes: PERRL Musculoskeletal: Flexion and extension of cervical [spine] somewhat guarded secondary to pain, [antalgic gait noted] Neurological: Speech clear, no gross sensory deficit Assessment:: Bilateral shoulder pain, left arm pain, right knee pain Plan:: Patient continues to experience significant pain in his left shoulder. Patient did have limited range of motion of the cervical spine during today's visit. I have discussed with the patient that he may benefit from a left suprascapular nerve block. Risk and benefits were discussed with the patient. He would like to proceed forward with this plan of care. We will schedule him for a left suprascapular nerve block. Patient has been instructed to contact the clinic with any concerns before the next appointment. Dr. Martin has reviewed this note and agrees with this plan of care. This note was dictated using voice recognition software and make contain errors or omissions. [facility] Disclaimer: The information contained in this section may have been updated after the patient was seen, as this information can be updated by other users. Medical History (Updated 05/02/22 @ 16:52 by Kimberli Aguilar MD) Aftercare following right shoulder joint replacement surgery Arthropathy of right shoulder Hypertension Rotator cuff arthropathy of right shoulder Surgical History (Updated 02/16/22 @ 13:42 by Merari Velásquez RN) History of arthroscopy of left shoulder Family History (Updated 02/16/22 @ 13:40 by Merari Velásquez RN) Other No significant family history Social History (Updated 03/21/22 @ 09:57 by Lindsey Cervantes) Smoking Status: Never smoker alcohol intake: current substance use type: denies use current occupational status: unemployed Travel in the last 8 weeks: None household members: spouse housing: house marital status: current occupational exposures/hazards: Yes
[2022-06-22 15:02] VITALS: BP 128/79; PULSE 78; RESP 18; O2SAT 97; BMI 29.4
== END ==
PROVIDERS: PCP Nurse Practitioner Family; Visit Provider Nurse Practitioner Family
DX: M25.511 Pain in right shoulder (principal); M25.512 Pain in left shoulder; M79.602 Pain in left arm; M25.561 Pain in right knee
CPT/HCPCS: 99212; G0463

== ENCOUNTER 2022-06-27 13:32 | Day surgery (SDC) | payer OTHER, SELFPAY ==
[2022-06-27 13:00] VITALS: BP 131/84; PULSE 69; RESP 18; TEMP 36.8; O2SAT 100; BMI 29.9
--- NOTE | 2022-06-27 14:07 | P.PCN_ITS ---
Procedure Date: 06/27/22 Time: 14:07 Anesthesiologist:: Blaze Florez CRNA Complications:: None Pre-procedure Diagnosis:: Bilateral shoulder pain, left arm pain, right knee pain Post-procedure Diagnosis:: Same Indications for Procedure:: Patient is a pleasant 52-year-old male who presents today for left suprascapular nerve block. We are currently treating the patient for bilateral shoulder pain, left arm pain, right knee pain. Today he rates his pain a 6 out of 10. Patient states that he recently was on a ladder and ended up falling face first into a table. Patient is experiencing some pain from this injury. Patient denies any change to the location or type of pain he is experiencing in his shoulder. Patient has been to see his orthopedic doctor who states he does need a total shoulder replacement on his right however he does not have a specific date set for this. Procedure Details:: Informed consent was obtained and the risk and benefits of the procedure were explained to the patient. The patient was taken to the procedure room and placed in a sitting position on the exam room table. The area over his left shoulder was cleansed with ChloraPrep as a cleansing solution. Using a 25-gauge it was inserted into the superior lateral one third margin of the scapula, upon negative aspiration approximately 10 mL of quarter percent bupivacaine and 40 mg Depo-Medrol was injected at the site. Needle was removed and a sterile bandage was applied. Patient tolerated the procedure well with no complications. Patient was monitored in clinic for short period of time following and discharged neurologically intact. Plan and Disposition:: Patient will return to clinic in 2 weeks for evaluation of symptoms and follow- up. Patient has been instructed to contact the clinic with any questions or concerns before the next appointment date. Dr. Martin has read this note and agrees with this plan of care. This note was dictated using voice recognition software and may contain errors or omissions.
[2022-06-27 14:08] VITALS: BP 128/81; PULSE 73; RESP 18; O2SAT 99
== END 2022-06-27 14:08 | disposition home or self-care (01) ==
PROVIDERS: PCP Nurse Practitioner Family; Visit Provider Nurse Anesthetist, Certified Registered
DX: M25.511 Pain in right shoulder (principal); M25.512 Pain in left shoulder; M79.602 Pain in left arm; M25.561 Pain in right knee
CPT/HCPCS: 64418

== ENCOUNTER → 2022-07-13 09:28 | Outpatient (POV) | payer OTHER, SELFPAY ==
--- NOTE | 2022-07-13 09:55 | EXP.PAIN.SOA ---
[facility] Pain Management SOAP Note Subjective:: Patient is a pleasant 52-year-old male who presents today for follow-up of left superscapular nerve block on 06/27/2022. We are currently treating the patient for bilateral shoulder pain, left arm pain, right knee pain. Today he rates his pain a 2 out of 10. Patient states he has had significant improvement following this injection and feels like it still continuing to provide relief. Patient states that his pain has continued to be decreased. Patient states he has been able to increase his activity and range of motion with less pain. Patient states he was even feeling well enough that he may have overdone it that the other day in the garage. Patient denies any new injuries or pain. Patient is prescribed compounding cream that he states does provide additional improvement. [facility] #[id number] was reviewed and appropriate. Review of Systems: General: No recent weight changes, no fever, no sleep disturbances Respiratory: No cough, no shortness of air, no recurring pulmonary infections Cardiovascular/peripheral vascular: No chest pain, no palpitations, no edema, no shortness of breath Gastrointestinal: No new onset incontinence, normal bowel movements reported Genitourinary: No new onset incontinence Musculoskeletal: left shoulder pain Psychiatric: [Normal mood/affect] Neurological: [Denies weakness in extremities], [denies balance issues] Objective:: Physical Exam: General: Alert and oriented x3, no acute distress, pleasant and cooperative Lungs: Respirations even and unlabored, symmetrical chest expansion Eyes: PERRL Musculoskeletal: Flexion and extension of cervical [spine] somewhat guarded secondary to pain, [antalgic gait noted] Neurological: Speech clear, no gross sensory deficit ORT score updated with low risk Assessment:: Bilateral shoulder pain, left arm pain, right knee pain Plan:: Patient has had significant relief from the left scapular nerve block and does not require any additional injective therapy. At this time we will continue to monitor patient for worsening of symptoms. We will see the patient back in 1 month for follow-up and reevaluation of symptoms. Patient has been instructed to contact the clinic with any concerns before the next appointment. Dr. Martin has reviewed this note and agrees with this plan of care. This note was dictated using voice recognition software and make contain errors or omissions. [facility] Disclaimer: The information contained in this section may have been updated after the patient was seen, as this information can be updated by other users. Medical History Aftercare following right shoulder joint replacement surgery Arthropathy of right shoulder Hypertension Rotator cuff arthropathy of right shoulder Surgical History History of arthroscopy of left shoulder Family History Other No significant family history Social History Smoking Status: Never smoker alcohol intake: current substance use type: denies use current occupational status: unemployed Travel in the last 8 weeks: None household members: spouse housing: house marital status: current occupational exposures/hazards: Yes
[2022-07-13 10:14] VITALS: BP 124/86; PULSE 70; RESP 18; O2SAT 98; BMI 28.8
== END ==
PROVIDERS: PCP Nurse Practitioner Family; Visit Provider Nurse Practitioner Family
DX: M79.602 Pain in left arm (principal); M25.511 Pain in right shoulder; M25.512 Pain in left shoulder; M25.561 Pain in right knee
CPT/HCPCS: 99212; G0463

== ENCOUNTER 2022-08-01 10:00 | Outpatient (RCR) | payer OTHER, SELFPAY | END 2022-08-01 10:05 | disposition home or self-care (01) | LOC: OT 10:00 | PROVIDERS: PCP Nurse Practitioner Family; Visit Provider Orthopaedic Surgery | DX: M75.02 Adhesive capsulitis of left shoulder (principal) | CPT/HCPCS: 97010; 97014; 97110; 97140; 97164; 97166; 97530; G0283 ==

== ENCOUNTER → 2022-09-04 09:34 | Outpatient (POV) | payer OTHER, SELFPAY ==
[2022-09-04 09:48] VITALS: BP 125/87; PULSE 76; RESP 18; O2SAT 97; BMI 29.9
--- NOTE | 2022-09-04 10:12 | EXP.PAIN.SOA ---
[facility] Pain Management SOAP Note Subjective:: Patient is a pleasant 52-year-old male who presents today for follow-up. We are treating the patient for bilateral shoulder pain, left arm pain, right knee pain. Today he rates his pain a 6 out of 10. Patient denies any new trauma or injury. Patient denies any change to the location or type of pain he experiences. Patient previously had a left suprascapular nerve block on 06/27/2022 that did provide at least 60% improvement lasting almost 2 months. Patient does describe his pain as a aching, throbbing sensation that is worse with increased activity. Patient states that he has recently gone back to work at the [employer] since our last visit. Patient is not interested in surgical intervention such as a shoulder replacement for his left shoulder pain at this time. He does state his pain does limit his ability to perform activities of living such as cooking and cleaning and that he frequently cannot do movements involving raising his left shoulder up. Patient is currently managed with gabapentin 100 mg from an outside provider. And compounding cream from our office. Patient denies any side effects from this medication. His Tariq is [id number]. Its been reviewed and appropriate. Review of Systems: General: No recent weight changes, no fever, no sleep disturbances Respiratory: No cough, no shortness of air, no recurring pulmonary infections Cardiovascular/peripheral vascular: No chest pain, no palpitations, no edema, no shortness of breath Gastrointestinal: No new onset incontinence, normal bowel movements reported Genitourinary: No new onset incontinence Musculoskeletal: Left shoulder pain Psychiatric: [Normal mood/affect] Neurological: [Denies weakness in extremities], [denies balance issues] Objective:: Physical Exam: General: Alert and oriented x3, no acute distress, pleasant and cooperative Lungs: Respirations even and unlabored, symmetrical chest expansion Eyes: PERRL Musculoskeletal: Flexion and extension of left shoulder somewhat guarded secondary to pain, [antalgic gait noted] Neurological: Speech clear, no gross sensory deficit Assessment:: Bilateral shoulder pain, left arm pain, right knee pain Plan:: Patient is experiencing worsening pain in his left shoulder and limited range of motion. I have discussed with patient that he may benefit from a repeat suprascapular nerve block. Patient previously had at least 60% improvement following a suprascapular nerve block in June lasting approximately 2 months. Risk and benefits were discussed with the patient and he would like to proceed forward with this plan of care. We will schedule him for a left supra scapular nerve block. Patient has been instructed to contact the clinic with any concerns before the next appointment. Dr. Martin has reviewed this note and agrees with this plan of care. This note was dictated using voice recognition software and make contain errors or omissions. [facility] Disclaimer: The information contained in this section may have been updated after the patient was seen, as this information can be updated by other users. Medical History Aftercare following right shoulder joint replacement surgery Arthropathy of right shoulder Hypertension Rotator cuff arthropathy of right shoulder Surgical History History of arthroscopy of left shoulder Family History Other No significant family history Social History Smoking Status: Never smoker alcohol intake: current substance use type: denies use current occupational status: employed Travel in the last 8 weeks: None household members: spouse housing: house marital status: current occupational exposures
== END ==
PROVIDERS: PCP Nurse Practitioner Family; Visit Provider Nurse Practitioner Family
DX: M25.511 Pain in right shoulder (principal); M25.512 Pain in left shoulder; M79.602 Pain in left arm; M25.561 Pain in right knee
CPT/HCPCS: 99212; G0463

== ENCOUNTER 2022-09-12 12:53 | Day surgery (SDC) | payer OTHER, SELFPAY ==
[2022-09-12 13:17] VITALS: BP 141/91; PULSE 77; RESP 18; TEMP 36.6; O2SAT 99; BMI 29.9
[2022-09-12 13:32] VITALS: BP 147/93; PULSE 66; RESP 18; O2SAT 99
--- NOTE | 2022-09-12 13:35 | EXP.PAIN.PRO ---
Procedure Date: 09/12/22 Time: 13:35 Anesthesiologist:: Blaze Florez CRNA Complications:: None Pre-procedure Diagnosis:: Chronic left shoulder pain Post-procedure Diagnosis:: Same. Indications for Procedure:: Patient is a very pleasant 52-year-old male that comes our clinic today for repeat left suprascapular nerve block. Patient had significant improvement terms of left shoulder pain following his initial block several weeks ago. Patient is status post left shoulder surgery with continued chronic pain. Patient has been informed he needs total shoulder joint replacement on his right shoulder. Possibly left shoulder as well. Procedure Details:: Details of the procedure explained to the patient. Patient taken the procedure room placed in the sitting position. The area over the left scapula was cleansed using chlorhexidine as a cleansing solution. Using an inch and a half 22-gauge needle the lateral superior border of the left scapula was palpated. Needle was inserted on the left lateral superior scapular border. In 2 separate areas after negative aspiration 5 cc of 0.25% Marcaine +5 cc of 1% lidocaine was injected in each area. The injection also contained 40 mg of Depo-Medrol. Patient tolerated procedure without difficulty. No complications Plan and Disposition:: Patient was discharged without incident.
== END 2022-09-12 13:32 | disposition home or self-care (01) ==
PROVIDERS: PCP Nurse Practitioner Family; Visit Provider Nurse Anesthetist, Certified Registered
DX: M25.512 Pain in left shoulder (principal); G89.29 Other chronic pain
CPT/HCPCS: 64418; J1040

== ENCOUNTER → 2022-11-27 12:54 | Outpatient (POV) | payer BC, OTHER, SELFPAY ==
[2022-11-27 13:25] VITALS: BP 148/102; PULSE 72; RESP 20; O2SAT 97; BMI 29.9
--- NOTE | 2022-11-27 14:56 | EXP.PAIN.SOA ---
[facility] Pain Management SOAP Note Subjective:: Patient is a pleasant 52-year-old male who presents today for follow-up of left suprascapular nerve block on 09/12/2022. We are currently treating the patient for bilateral shoulder pain, left arm pain, right knee pain. Today he rates his pain a 9 out of 10. Patient denies any new trauma or injury. Patient denies any change to location or type of pain he experiences. Patient states he had no relief following this injection and continues to have chronic severe pain in his left shoulder. Patient previously had an injection back in June that did provide 60% relief lasting 2 months. Patient does continue to describe his pain as an aching, throbbing sensation that is worse with increased activity. Patient does state it interferes with his ability to perform activities of daily living such as cooking and cleaning. Patient has tried oral medications, heat and ice, topicals, physical therapy and at home stretching and exercise for longer than 6 weeks with minimal improvement. Patient does have difficulty raising his arm up above his head due to limited range of motion. He is currently prescribed gabapentin 100 mg from an outside provider and compounding cream from our office. His Tariq is [id number]. Its been reviewed and appropriate. Review of Systems: General: No recent weight changes, no fever, no sleep disturbances Respiratory: No cough, no shortness of air, no recurring pulmonary infections Cardiovascular/peripheral vascular: No chest pain, no palpitations, no edema, no shortness of breath Gastrointestinal: No new onset incontinence, normal bowel movements reported Genitourinary: No new onset incontinence Musculoskeletal: Left shoulder pain Psychiatric: [Normal mood/affect] Neurological: [Denies weakness in extremities], [denies balance issues] Objective:: Physical Exam: General: Alert and oriented x3, no acute distress, pleasant and cooperative Lungs: Respirations even and unlabored, symmetrical chest expansion Eyes: PERRL Musculoskeletal: Flexion and extension of left shoulder somewhat guarded secondary to pain, [antalgic gait noted] Neurological: Speech clear, no gross sensory deficit FINAL REPORT CLINICAL HISTORY: LEFT ANTERIOIR SHOULDER PAIN , LROM, NKI, LEFT NECK SWELLING DOWN TO SHOULDER, R/O TOTATOR CUFF TEAR FINDINGS: Multiplanar MR imaging of the left shoulder was performed without contrast. ? There is a focal full-thickness tear at the footprint of the supraspinatus tendon measuring 11 mm in AP dimension.? There is also partial thickness articular surface tear of the subscapularis tendon involving less than 50%.? There is mild AC joint arthrosis.? A small amount of fluid is seen in the subacromial/subdeltoid bursa.? There is a subchondral cyst in the greater tuberosity. ? The glenoid labrum is intact.? The long head of the biceps tendon is intact.? No significant glenohumeral joint effusion is seen.? There is no evidence of fracture or dislocation. The musculature is intact.? There is no evidence of soft tissue mass. IMPRESSION: Full-thickness tear of the supraspinatus tendon. Partial-thickness articular surface tear of the subscapularis tendon. Reviewed, Interpreted and Dictated by Davie Edward III, MD Transcribed by Ciara Monaco Authenticated by Davie Edward III, MD on 09/23/2021 04:10:[address] [facility] Assessment:: bilateral shoulder pain, left arm pain, right knee pain, chronic pain syndrome Plan:: Patient continues to experience severe pain in his left shoulder with limited range of motion. Patient has tried and failed conservative therapy such as oral medications, heat and ice, topicals, physical therapy, injective therapy and at home exercising and stretching for longer than 6 weeks. I have discussed with the patient that he may benefit from a peripheral nerve stimulator. Risk and benefits were discussed with the patient and educational handouts given nic
== END ==
PROVIDERS: PCP Nurse Practitioner Family; Visit Provider Nurse Practitioner Family
DX: M25.511 Pain in right shoulder (principal); M25.512 Pain in left shoulder; M25.561 Pain in right knee; M79.602 Pain in left arm
CPT/HCPCS: 99212; G0463

== ENCOUNTER 2023-12-14 08:54 | Outpatient (CLI) | payer BC, OTHER, SELFPAY ==
[2023-12-14 17:17] LABS: Basophils # 0.1 K/mm3 (0-0.2); Basophils % 1.3 % (0.1-2.0); Eosinophils # 0.5 K/mm3 (0.0-0.4); Hematocrit 50.3 % (42.0-52.0); Hemoglobin 17.1 g/dL (14.1-18.0); Lymphocytes % 23.9 % (10-50); Mean Corpuscular HGB Conc 33.9 g/dL (31.8-35.4); Mean Corpuscular Hemoglobin 30.6 pg (27.0-31.2); Mean Corpuscular Volume 90.2 fl (80-94); Mean Platelet Volume 9.2 fl (7.4-10.4); Monocytes # 0.6 K/mm3 (0.1-1.0); Monocytes % 6.8 % (1.7-9.3); Neutrophils # 5.2 K/mm3 (1.8-7.8); Platelet Count 205 K/mm3 (142-424); Red Blood Count 5.57 M/mm3 (4.60-6.20); Red Cell Distribution Width 13.5 % (11.5-17.5); White Blood Count 8.3 K/mm3 (4.8-10.8)
[2023-12-14 17:21] LABS: Alanine Aminotransferase 43 U/L (12-78); Albumin Level 4.9 g/dl (3.5-5.0); Albumin/Globulin Ratio 1.6 (1.1-1.8); Alkaline Phosphatase 73 U/L (38-126); Anion Gap 15.9 mEq/L (5-15); Aspartate Amino Transferase 73 U/L (17-59); Bilirubin,Total 0.7 mg/dl (0.2-1.3); Blood Urea Nitrogen 12 mg/dl (9-20); Carbon Dioxide 23 mmol/L (22.0-30.0); Chloride 105 mmol/L (98-107); Chol/HDL Ratio 5.8 (1-3.5); Cholesterol 244 mg/dl (140-200); Estimated Glomerular Filt Rate 79 ml/min (>60); GFR (African American) 95 ML/MIN (>60); Glucose 67 mg/dl (74-100); HDL Cholesterol 42 mg/dl (40-60); Potassium 3.9 mmoL/L (3.5-5.1); Sodium 140 mmol/L (136-145); Total Protein,Serum 7.9 g/dl (6.3-8.2); Triglycerides 306 mg/dl (30-150); VLDL Cholesterol 61 mg/dL (0-40)
[2023-12-14 17:32] LABS: Direct LDL Cholesterol 148.54 mg/dL (100-129)
[2023-12-14 17:51] LABS: Prostate Specific Ag Screen 0.8 ng/ml (0.0-4.0)
[2023-12-14 17:54] LABS: Thyroid Stimulating Hormone 2.11 uIU/mL (0.465-4.68)
[2023-12-14 18:13] LABS: Vitamin B12 573 pg/mL (239-931)
[2023-12-14 19:13] LABS: Ferritin 163 ng/ml (17.9-464)
== END 2023-12-14 23:59 | disposition home or self-care (01) ==
LOC: LAB.DROPOF 12-17 08:55
PROVIDERS: PCP Nurse Practitioner Family; Visit Provider Nurse Practitioner Family
DX: I10 Essential (primary) hypertension (principal); Z12.5 Encounter for screening for malignant neoplasm of prostate; G25.81 Restless legs syndrome
CPT/HCPCS: 80050; 80053; 80061; 82607; 82728; 84443; 85025; G0103

== ENCOUNTER 2024-02-26 15:32 | Outpatient (CLI) | payer BC, OTHER, SELFPAY ==
[2024-02-26 14:54] LABS: Albumin Level 4.6 g/dl (3.5-5.0); Chloride 105 mmol/L (98-107); Sodium 140 mmol/L (136-145)
[2024-02-26 14:55] LABS: Potassium 4.3 mmoL/L (3.5-5.1)
[2024-02-26 14:57] LABS: Alanine Aminotransferase 56 U/L (12-78); Anion Gap 11.3 mEq/L (5-15); Aspartate Amino Transferase 76 U/L (17-59); Blood Urea Nitrogen 13 mg/dl (9-20); Carbon Dioxide 28 mmol/L (22.0-30.0); Estimated Glomerular Filt Rate 79 ml/min (>60); GFR (African American) 95 ML/MIN (>60)
[2024-02-26 14:58] LABS: Albumin/Globulin Ratio 1.6 (1.1-1.8); Alkaline Phosphatase 72 U/L (38-126); Bilirubin,Total 0.9 mg/dl (0.2-1.3); Calcium 9.3 mg/dl (8.4-10.2); Chol/HDL Ratio 3.9 (1-3.5); Cholesterol 156 mg/dl (140-200); Globulin 2.9 g/dL (1.3-3.2); Glucose 93 mg/dl (74-100); HDL Cholesterol 40 mg/dl (40-60); Total Protein,Serum 7.5 g/dl (6.3-8.2); Triglycerides 186 mg/dl (30-150); VLDL Cholesterol 37 mg/dL (0-40)
[2024-02-26 15:09] LABS: Direct LDL Cholesterol 84.46 mg/dL (100-129)
== END 2024-02-26 23:59 | disposition home or self-care (01) ==
LOC: LAB.DROPOF 15:33
PROVIDERS: PCP Nurse Practitioner Family; Visit Provider Nurse Practitioner Family
DX: E78.5 Hyperlipidemia, unspecified (principal)
CPT/HCPCS: 80053; 80061

== ENCOUNTER 2025-03-04 10:00 | Outpatient (CLI) | payer BC, OTHER, SELFPAY ==
--- OUTSIDE RECORDS SUMMARY | 2025-03-05 10:15 | XMS_ITS | Clinical Summary ---
Author Organization [facility] Address [address] [place] [address] Care Team Providers Care Compliance Testing Analyst Name Role Phone Cecil Gayle MD Primary Care Provider [phone] Allergies No known active allergies Medications hydroCHLOROthia [...] VACCINE 03/18/2025 Medical Devices Implanted Type Area Mobile Solutions Architect Device Identifier Shelf Expiration Date Model / Serial / Lot Sys Sut/Anch Biocomp Speedbridge 4.85 12.5 - [id number] Implanted:Qty: 1 on 11/10/2021 by Nikunj Monterroso MD at [facility] Implant Left: Shoulder ARTHREX [id number] 05/17/2025 [id number] / / [id number] Sut Fw #2 W/Tpr Ndl / Cir 38in 97cm 26.5mm Kenney - [id number] Implanted:Qty: 1 on 11/10/2021 by Nikunj Monterroso MD at [facility] Implant Left: Shoulder ARTHREX [id number] / / Insurance Advance Directives Documents on File Type Date Recorded Patient Mercerizer Expl anation LIVING WILL - SCAN 12/30/2020 1:49 PM MARIANO FRANZ, 12/30/2020 Care Teams Compliance Testing Analyst Relationship Specialty Start Date End Date Cecil Gayle MD [address] [place] [address] PCP - General Family Medicine 11/08/21
== END 2025-03-04 23:59 | disposition home or self-care (01) ==
LOC: LAB.DROPOF 03-05 10:12
PROVIDERS: PCP Nurse Practitioner Family; Visit Provider Nurse Practitioner Family
DX: E78.5 Hyperlipidemia, unspecified (principal); Z12.5 Encounter for screening for malignant neoplasm of prostate

== ENCOUNTER 2025-03-04 10:19 | Outpatient (CLI) | payer BC, OTHER, SELFPAY ==
--- NOTE | 2025-03-04 10:23 | XR_ITS ---
FINAL REPORT CLINICAL HISTORY: left shoulder pain, decreased ROM of left shoulder COMPARISON: none FINDINGS: 3 views of the left shoulder show no evidence of acute displaced fracture or dislocation of the visualized bony architecture. Mild degenerative changes are noted. There are anchor screws in the humeral head. An old healed mid humeral shaft fracture is noted. IMPRESSION: Chronic changes without acute findings. Reviewed, Interpreted and Dictated by Mohit Pereira MD Transcribed by Ximena Cobos Authenticated and [facility]
--- OUTSIDE RECORDS SUMMARY | 2025-03-04 10:23 | XMS_ITS | Clinical Summary ---
Author Organization [facility] Address [address] [place] [address] Care Team Providers Care Design Quality Engineer Name Role Phone Cecil Gayle MD Primary Care Provider [phone] Allergies No known active allergies Medications hydroCHLOROthia zide (HYDRODIURIL) 12.5 MG tablet Take 12.5 mg by mouth Daily. Active amLODIPine-carlota zepril (LOTREL 5-20) 5-20 MG per capsule Take 1 capsule by mouth Daily. Active ondansetron (ZOFRAN) 4 MG tablet Take 1 tablet by mouth Every 8 (Eight) Hours As Needed post op nausea 30 tablet 11/08/2021 11:22 AM EDT 11/08/2021 Active aspirin 81 MG chewable tablet Chew 81 mg Daily. Active ibuprofen (ADVIL,MOTRIN) 200 MG tablet Take 1,000 mg by mouth Every 6 (Six) Hours As Needed for Mild Pain . Patient educated that is too high of a dose to be taken at ones Active oxyCODONE (ROXICODONE) 5 MG immediate release tablet Take 1-2 tablets by mouth Every 4 (Four) Hours As Needed for Moderate Pain . 50 tablet 11/10/2021 4:09 PM EDT 11/10/2021 Active Active Problems No known active problems Immunizations Immunization Administration Dates Next Due COVID-19 (PFIZER) Purple Cap Monovalent 03/22/20 21,03/01/2021 Social History Tobacco Use Types Packs/Day Years Used Date Smoking Tobacco: Never Smokeless Tobacco: Never Alcohol Use Standard Drinks/Week Comments Yes 0 (1 standard drink = 0.6 oz pur e alcohol) occasionally 1 drink a week Abuse Screen Answer Date Recorded Unsafe at Home or Work/School Not on file Feels Threatened by Someone? Not on file Does Anyone Keep You from Co ntacting Others or Doint Things Outside the Home? Not on file 03/30/2023 Physical Sign of Abuse Present Not on file 1 Housing Stability Answer Date Recorded Current Living Arrangements Not on file 03/18 Potentially Unsafe Housing Conditions Not on iain e 03/30/2023 Family and Community Support Answer Rick e Recorded Help with Day-to-Day Activities Not on file 03/30/2023 Lonely or Isolated Not on file 03/30/2023 Employment Answer Date Recorded Do you want help finding or keeping work or a kerwin b? Not on file 03/30/2023 Disabilities Answer Date Recorded Concentrating, Remembering, or Making Decisions Difficulty Not on file 03/30/2023 Doing Errands Independently Difficulty Not on fi le 03/30/2023 Education Answer Date Recorded Help with school or training? Not on file Preferred Language Not on file 03/30/2023 Sex and Gender Information Value Date Recorded Sex Assigned at Not on file Legal Sex Male 10:35 AM EDT Gender Identity Not on file Sexual Orientation Not on file Last Filed Vital Signs Vital Sign Reading Time Taken Comments Blood Pressure 129/88 11/10/2021 3:45 PM EDT Pulse 60 11/10/2021 3:50 PM EDT Temperature 36.6 C (97.9 F) 11/10/2021 4:07 PM EDT Respiratory Rate 18 11/10/2021 4:07 PM EDT Oxygen Saturation 94% 11/10/2021 3:50 PM EDT Inhaled Oxygen Concentration - - Weight 106 kg (234 lb) 11/10/2021 9:47 AM EDT Height 186.7 cm (6' 1.5 ) 11/10/2021 9:47 AM EDT Body Mass Index 30.45 11/10/2021 9:47 AM EDT Plan of Treatment Health Maintenance Due Date Last Done Comments TDAP/TD VACCINES (1 - Tdap) 1991 COLOGUARD 2017 COLON CANCER SCREENING 5 YEA R SIGMOIDOSCOPY 2017 COLONOSCOPY 2017 [address]AL CANCER SCREENING 2017 CT COLONOGRAPHY 2017 FECAL OCCULT BLOOD TEST 2017 FIT Testing (1 year) 2017 ANNUAL PHYSICAL 12/27/2020 HEPATITIS C SCREENING 12/27/2020 Pneumococcal Vaccine 50+ (1 of 1 - PCV) 2022 ZOSTER VACCINE (1 of 2) 2022 COVID-19 Vaccine (3 - season) 02/16/202510/2020, 03/01/2021 INFLUENZA VACCINE 03/18/2025 Medical Devices Implanted Type Area Fisher Device Identifier Shelf Expiration Date Model / Serial / Lot Sys Sut/Anch Biocomp Speedbridge 4.85 12.5 - [id number] Implanted:Qty: 1 on 11/10/2021 by Nikunj Monterroso MD at [facility] Implant Left: Shoulder ARTHREX [id number] 05/17/2025 [id number] / / [id number] Sut Fw #2 W/Tpr Ndl / Cir 38in 97cm 26.5mm Kenney - [id number] Implanted:Qty: 1 on 11/10/2021 by Nikunj Monterroso MD at [facility] Implant Left: Shoulder ARTHREX [id number] / / Insurance Advance Directives Documents on File Type Date Recorded Patient Mfg Assoc Expl anation LIVING WILL - SCAN 12/30/2020 1:49 PM MARIANO FRANZ, 12/30/2020 Care Teams Design Quality Engineer Relationship Specialty Start Date End Date Cecil Gayle MD [address] [place] [address] PCP - General Family Medicine 11/08/21
[2025-03-04 14:54] LABS: Alanine Aminotransferase 40 U/L (12-78); Albumin Level 4.4 g/dl (3.5-5.0); Albumin/Globulin Ratio 1.6 (1.1-1.8); Alkaline Phosphatase 64 U/L (38-126); Anion Gap 10.4 mEq/L (5-15); Aspartate Amino Transferase 65 U/L (17-59); Bilirubin,Total 0.8 mg/dl (0.2-1.3); Blood Urea Nitrogen 11 mg/dl (9-20); Calcium 9.0 mg/dl (8.4-10.2); Carbon Dioxide 26 mmol/L (22.0-30.0); Chloride 100 mmol/L (98-107); Cholesterol 224 mg/dl (140-200); Creatinine,Serum 0.80 mg/dl (0.66-1.25); Estimated Glomerular Filt Rate 102 ml/min (>60); GFR (African American) 123 ML/MIN (>60); Globulin 2.7 g/dL (1.3-3.2); Glucose 189 mg/dl (74-100); HDL Cholesterol 34 mg/dl (40-60); Potassium 4.4 mmoL/L (3.5-5.1); Sodium 132 mmol/L (136-145); Total Protein,Serum 7.1 g/dl (6.3-8.2); Triglycerides 234 mg/dl (30-150)
[2025-03-04 15:26] LABS: Thyroid Stimulating Hormone 1.57 uIU/mL (0.465-4.68)
== END 2025-03-04 23:59 | disposition home or self-care (01) ==
LOC: RAD 10:21
PROVIDERS: PCP Nurse Practitioner Family; Visit Provider Nurse Practitioner Family
DX: M19.012 Primary osteoarthritis, left shoulder (principal); Z87.81 Personal history of (healed) traumatic fracture; Z12.5 Encounter for screening for malignant neoplasm of prostate; E78.5 Hyperlipidemia, unspecified
CPT/HCPCS: 73030; 80053; 80061; 84443; G0103

== ENCOUNTER 2025-04-09 16:33 | Outpatient (CLI) | payer BC, OTHER, SELFPAY ==
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
--- OUTSIDE RECORDS SUMMARY | 2025-04-09 16:37 | XMS_ITS | Clinical Summary ---
Author Organization [facility] , [facility] Address [address] [place] [address] Phone Care Team Providers Care Boss Miner Name Role Phone Loc BERRY, Nikunj Thakur Unavailable Unavail able Ana Laura Anton Primary Care Provider [phone] BENNETT ANTON Unavailable [phone] Reason for Visit and Chief Complaint The Chief Complaint is: Left shoulder pain Problems Includes: Problems addressed during this encounter and other active Problems All Visits Onset Date Resolved Date Provider Condition S tatus History of Joint Pain Shoulder Left 09/26/2021 Abel Blanca PA-C Active Last Documented On 2 9:20AM ; [facility] Joint Pain Shoulder Right 09/26/2021 Abel Blanca PA-C Active Last Documented On 2 9:20AM ; [facility] Joint Pain Shoulder 12/22/2020 Nikunj abreu MD Active Last Documented On 1 9:28AM ; [facility] Plan of Treatment He is seeking some injections through pain management and is thinking about it pain stimulator he can see us in about 3 months no formal restrictions - Last Documented On 09/07/2023 2:39PM ; [facility] Instructions to patient Lose weight Last Documented On 3 9:19AM ; [facility] Assessments Includes: Assessments from this encounter Findings - Overweight - Last Documented On 09/07/2023 2:39PM ; [facility] Left cuff repair with postop adhesive capsule - Last Documented On 09/07/2023 2:39PM ; [facility], [facility] Instructions Includes: Instructions from this encounter Instructions to patient Lose weight Last Documented On 3 9:19AM ; [facility], [facility] Medical Equipment - Implanted Devices Includes: Current Devices No Medical Equipment Recorded Medications Includes: Medications discussed during this encounter and other current Medications Current Medications (continue as prescribed) Diclofenac Sodium 75 MG Oral Tablet Delayed Release 01/18/2022 Provider: BENNETT ANTON Diagnosis: Last Documented On 2 11:23AM By Mohan Dunbar ; [facility], [facility] amLODIPine Besy-Benazepril H Cl 5-20 MG Oral Capsule 12/08/2021 Provider: ENRICO APODACA MD Diagnosis: Last Documented On 2 11:23AM By Mohan Dunbar ; [facility], [facility] hydroCHLOROthiazide 12.5 MG Oral Capsule 12/08/2021 Provider: ENRICO APODACA MD Diagnosis: Last Documented On 2 11:23AM By Mohan Dunbar ; [facility], [facility] Past Medications on file Gabapentin 100 MG Oral Capsule 06/20/2022 - 06/30/2022 Provider: Nikunj abreu MD Diagnosis: one capsule by mouth three times a day Last Documented On 3 11:26AM By Nikunj Monterroso ; [facility], [facility] HYDROcodone-Acetaminophen 5- 325 MG Oral Tablet 12/05/2021 - 12/12/2021 Provider: Nikunj Monterroso MD Diagnosis: one tablet by mouth three times a day Last Documented On 2 11:46AM By Nikunj Monterroso ; [facility], [facility] HYDROcodone-Acetaminophen 5- 325 MG Oral Tablet 11/28/2021 - 12/05/2021 Provider: Nikunj Monterroso MD Diagnosis: three times a day Last Documented On 2 4:09PM By Nikunj Monterroso ; [facility], [facility] oxyCODONE HCl 5 MG Oral Tablet 11/25/2021 - 11/30/2021 Provider: Nikunj abreu MD Diagnosis: 1 tablet by mouth 6 hours prn pain Last Documented On 2 3:38PM By Nikunj Monterroso ; [facility], [facility] oxyCODONE HCl 5 MG Oral Tablet 11/15/2021 - 11/20/2021 Provider: Nikunj abreu MD Diagnosis: 1 tablet by mouth 6 hours prn pain Last Documented On 2 9:01AM By Nikunj Monterroso ; [facility] Benzoyl Peroxide Wash 5% External Liquid 11/08/2021 - 11/09/2021 Provider: Nikunj abreu MD Diagnosis: use as directed by Dr. Monterroso Last Documented On 2 8:09AM By Tanesha Amrando [facility] Ondansetron HCl 4 MG Oral Tablet 11/08/2021 - 11/18/2021 Provider: Nikunj abreu MD Diagnosis: 1 q 8 hours prn post op nausea Last Documented On 2 8:09AM By Tanesha Armando [facility] Benzoyl Peroxide Wash 5% External Liquid 12/24/2020 - 12/26/2020 Provider: Nikunj abreu MD Diagnosis: use as directed by provider beginning 2 days prior to surgery Last Documented On 1 8:48AM By Nissa DiMeo [facility] Zofran 4 MG Oral Tablet 12/24/2020 - 01/03/2021 Provid er: Nikunj Monterroso MD Diagnosis: Take 1 tablet every 8 hrs prn post op nausea Last Documented On 1 8:49AM By Nissa Armando [facility] Medications Administered Includes: Administered Medications from this encounter No Administered Medications Recorded Vital Signs Includes: Vital Signs from this encounter Vital Name 09/18/2022 09:20A Height (in) 73 Weight (lb) 223 Body Mass Index 29.4 Body Surface Area 2.3 Note: hdv Last Documented: On 09/18/2022 9:20AM ; [facility] Results Includes: Results discussed during this encounter [...] Pain specialist Medications used for this condition: Social History Description Last Updated No recent change in diet 09/07/2023 Last Documented On 4 2:39PM ; [facility], [facility] Not a current smoker. 09/07/2023 Last Documented On 4 2:39PM ; [facility], [facility] Tobacco non-user 02/27/2022 Last Documented On 3 9:19AM ; [facility] Not a smoker 01/31/2022 Last Documented On 3 9:19AM ; [facility] Non-smoker 12/22/2020 Last Documented On 3 9:19AM ; [facility] Alcohol use 12/22/2020 Last Documented On 3 9:19AM ; [facility], [facility] Caffeine use 12/22/2020 Last Documented On 3 9:19AM ; [facility], [facility] No recent change in diet 12/22/2020 Last Documented On 3 9:19AM ; [facility], [facility] Not a current smoker. 12/22/2020 Last Documented On 3 9:19AM ; [facility], [facility] Not exercising regularly 12/22/2020 Last Documented On 3 9:19AM ; [facility], [facility] Not using drugs 12/22/2020 Last Documented On 3 9:19AM ; [facility], [facility] Smoking Status Unknown Procedures and Surgical History Includes: Procedures from this encounter Procedures Code Diagnosis Performing Provider Service L ocation Service Date use of tobacco assessment performed 1000F Last Documented On 3 9:19AM ; [facility], [facility] an X-ray was performed 05492 Last Documented On 3 9:19AM ; [facility], [facility] an MRI was performed [id number] Last Documented On 3 9:19AM ; [facility], [facility] Medical History Includes: Medical History addressed during this encounter Description Last Updated History of Arthroscopy right shoulder Last Documented On 3 9:19AM ; [facility], [facility] Hypertension 12/22/2020 Last Documented On 3 9:19AM ; [facility] No recent immunization for pneumococcal pneumonia 12/22/2020 Last Documented On 3 9:19AM ; [facility] Recent immunization for flu 12/22/2020 Last Documented On 3 9:19AM ; [facility] Family History Includes: Family History addressed during this encounter Description Last Updated Diabetes mellitus 12/22/2020 Last Documented On 3 9:19AM ; [facility] Family history of cancer 12/22/2020 Last Documented On 3 9:19AM ; [facility] Family history of heart disease 12/23/19 21 Last Documented On 3 9:19AM ; [facility] Family history of hypertension 1 Last Documented On 3 9:19AM ; [facility] Review of Systems Includes: Review of Systems [...] Active Last Documented On 3 9:19AM ; [facility], [facility] Encounters Encounter Provider Location Date Check-In Time Check-Out Time Diagnosis Follow Up Abel Blanca PA-C [facility] 3 9:12AM 9:27AM Overweight Insurance Includes: Active Insurance Policies Plan Name Member ID Group # Subscriber Relationship Effect dillon Dates 1 - [employer]na [facility] [id number] [place] Jacob Self 06/18/19 21 - Unknown Clinical Notes Includes: Clinical Notes from this encounter * Progress note Date Encounter Last Documented by 09/18/2022 Follow Up Last documented on 09/07/2023; 2:39 PM, Abel Blanca PA-C; [facility], [facility] Active Problems & Conditions - History of [...] Pain specialist Medications used for this condition: Current Medication - amLODIPine Besy-Benazepril HCl 5-20 MG Oral Capsule 90 days, 0 refills - Diclofenac Sodium 75 MG Oral Tablet Delayed Release 30 days, 0 refills - hydroCHLOROthiazide 12.5 MG Oral Capsule 90 days, 0 refills Past Medical/Surgical History [...] allergic reaction. Physical Findings - Vitals taken 09/18/2022 09:20 am hdv Height 73 in Weight 223 lbs Body Mass Index 29.4 kg/m2 Body Surface Area 2.3 m2 general Exam: The patient is awake and alert. No acute distress. Normal mood and affect for age. Well groomed and nourished Neuro: Sensation was intact to light touch over the extremity. Vascular: +2 radial pulses. No edema. Derm: No signs of active infection. No acute skin changes. Musculoskeletal: Normal gait and station. No muscle atrophy. No joint effusion. No muscle or bony deformity Active forward flexion to 140 I can extend him another 20 degrees passive external rotation is about 70 degrees. Strength in the cuff is 4 out of 5 Assessment - Overweight Left cuff repair with postop adhesive capsule Previous Tests Imaging: X-Ray: An X-ray was performed. MRI Scan: An MRI was performed. Counseling/Education - Lose weight Plan He is seeking some injections through pain management and is thinking about it pain stimulator he can see us in about 3 months no formal restrictions Notes This dictation was done with voice recognition software and may contain errors and omissions. Practice Management Use of tobacco assessment performed. Care Team - BENNETT ANTON
--- OUTSIDE RECORDS SUMMARY | 2025-04-09 16:37 | XMS_ITS | Clinical Summary ---
Author Organization [facility] , [facility] Address [address] [place] [address] Phone Care Team Providers Care Commercial Lawn Specialist Name Role Phone Loc BERRY, Nikunj Thakur Unavailable [phone] Ana Laura Anton Primary Care Provider [phone] BENNETT ANTON Unavailable [phone] Reason for Referral Date Encounter Description Provider Reason for Referral 04/11/22 Follow Up Abel Blanca PA-C Refe rral To Physician - for bp Reason for Visit and Chief Complaint The Chief Complaint is: Left shoulder pain Problems Includes: Problems addressed during this encounter and other active Problems All Visits Onset Date Resolved Date Provider Condition S tatus History of Joint Pain Shoulder Left 09/26/2021 Abel Blanca PA-C Active Last Documented On 2 9:20AM ; [facility] Joint Pain Shoulder Right 09/26/2021 Abel LION-Nery Active Last Documented On 2 9:20AM ; [facility] Joint Pain Shoulder 12/22/2020 Nikunj abreu MD Active Last Documented On 1 9:28AM ; [facility], [facility] Plan of Treatment He needs to continue therapy.he had a bit of a stall with this due to his father's illness. He will continue daily home exercise program and formal physical therapy will see him in 2 months - Last Documented On 04/11/2022 9:17AM ; [facility] Instructions to patient No intervention and counseli ng on cessation of tobacco use Last Documented On 2 9:09AM ; [facility] Lose weight Last Documented On 2 9:09AM ; [facility], [facility] Assessments Includes: Assessments from this encounter Findings Left shoulder postop adhesive capsulitis - Last Documented On 04/11/2022 9:17AM ; [facility], [facility] Instructions Includes: Instructions from this encounter Instructions to patient No intervention and counsellisa johnson on cessation of tobacco use Last Documented On 2 9:09AM ; [facility], [facility] Lose weight Last Documented On 2 9:09AM ; [facility], [facility] Medical Equipment - Implanted Devices Includes: Current Devices No Medical Equipment Recorded Medications Includes: Medications discussed during this encounter and other current Medications Current Medications (continue as prescribed) Diclofenac Sodium 75 MG Oral Tablet Delayed Release 01/18/2022 Provider: BENNETT ANTON Diagnosis: Last Documented On 2 11:23AM By Mohan Dunbar ; [facility], [facility] amLODIPine Besy-Benazepril H Cl 5-20 MG Oral Capsule 12/08/2021 Provider: ENRICO APODACA MD Diagnosis: Last Documented On 2 11:23AM By Mohan Dunbar ; [facility], [facility] hydroCHLOROthiazide 12.5 MG Oral Capsule 12/08/2021 Provider: ENRICO APODACA MD Diagnosis: Last Documented On 2 11:23AM By Mohan Dunbar ; [facility], [facility] Past Medications on file Gabapentin 100 MG Oral Capsule 06/20/2022 - 06/30/2022 Provider: Nikunj abreu MD Diagnosis: one capsule by mouth three times a day Last Documented On 3 11:26AM By Nikunj Monterroso ; [facility], [facility] HYDROcodone-Acetaminophen 5- 325 MG Oral Tablet 12/05/2021 - 12/12/2021 Provider: Nikunj Monterroso MD Diagnosis: one tablet by mouth three times a day Last Documented On 2 11:46AM By Nikunj Monterroso ; [facility], [facility] HYDROcodone-Acetaminophen 5- 325 MG Oral Tablet 11/28/2021 - 12/05/2021 Provider: Nikunj Monterroso MD Diagnosis: three times a day Last Documented On 2 4:09PM By Nikunj Monterroso ; [facility], [facility] oxyCODONE HCl 5 MG Oral Tablet 11/25/2021 - 11/30/2021 Provider: Nikunj abreu MD Diagnosis: 1 tablet by mouth 6 hours prn pain Last Documented On 2 3:38PM By Nikunj Armando [facility], [facility] oxyCODONE HCl 5 MG Oral Tablet 11/15/2021 - 11/20/2021 Provider: Nikunj abreu MD Diagnosis: 1 tablet by mouth 6 hours prn pain Last Documented On 2 9:01AM By Nikunj Armando [facility], [facility] Benzoyl Peroxide Wash 5% External Liquid 11/08/2021 - 11/09/2021 Provider: Nikunj abreu MD Diagnosis: use as directed by Dr. Monterroso Last Documented On 2 8:09AM By Tanesha Armando [facility], [facility] Ondansetron HCl 4 MG Oral Tablet 11/08/2021 - 11/18/2021 Provider: Nikunj abreu MD Diagnosis: 1 q 8 hours prn post op nausea Last Documented On 2 8:09AM By Tanesha Armando [facility], [facility] Benzoyl Peroxide Wash 5% External Liquid 12/24/2020 - 12/26/2020 Provider: Nikunj abreu MD Diagnosis: use as directed by provider beginning 2 days prior to surgery Last Documented On 1 8:48AM By Nissa Armando [facility], [facility] Zofran 4 MG Oral Tablet 12/24/2020 - 01/03/2021 Provid er: Nikunj Monterroso MD Diagnosis: Take 1 tablet every 8 hrs prn post op nausea Last Documented On 1 8:49AM By Nissa Armando [facility], [facility] Medications Administered Includes: Administered Medications from this encounter No Administered Medications Recorded Vital Signs Includes: Vital Signs from this encounter Vital Name 04/11/2022 09:09A Blood Pressure Sitting (mmHg) 115/62 Pulse Rate-Sitting (bpm) 69 Height (in) 73 Weight (lb) 223 Body Mass Index (kg/m2) 29.4 Body Surface Area (m2) 2.3 Note: hdv Last Documented: On 04/11/2022 9:09AM ; [facility], [facility] Results Includes: Results discussed during this encounter No Results Recorded For Specified Dates History of Present Illness Includes: History of Present Illness from this encounter HPI Modesto Jacob is a 52 year old [...] this condition: Social History Description Last Updated Tobacco non-user 02/27/2022 Last Documented On 2 9:09AM ; [facility] Not a smoker 01/31/2022 Last Documented On 2 9:09AM ; [facility] Non-smoker 12/22/2020 Last Documented On 2 9:09AM ; [facility] Alcohol use 12/22/2020 Last Documented On 2 9:09AM ; [facility] Caffeine use 12/22/2020 Last Documented On 2 9:09AM ; [facility] No recent change in diet 12/22/2020 Last Documented On 2 9:09AM ; [facility] Not a current smoker. 12/22/2020 Last Documented On 2 9:09AM ; [facility] Not exercising regularly 12/22/2020 Last Documented On 2 9:09AM ; [facility] Not using drugs 12/22/2020 Last Documented On 2 9:09AM ; [facility] Smoking Status Unknown Procedures and Surgical History Includes: Procedures from this encounter Procedures Code Diagnosis Performing Provider Service L ocation Service Date no intervention and counseling on cessation of tobacco use 4000F Last Documented On 2 9:09AM ; [facility] use of tobacco assessment performed 1000F Last Documented On 2 9:09AM ; [facility], [facility] follow-up visit in one month with PCP fo r elevated BP Last Documented On 2 9:09AM ; [facility] referral to physician for bp Last Documented On 2 9:09AM ; [facility] an X-ray was performed 30878 Last Documented On 2 9:09AM ; [facility] an MRI was performed [id number] Last Documented On 2 9:09AM ; [facility] Medical History Includes: Medical History addressed during this encounter Description Last Updated History of Arthroscopy right shoulder Last Documented On 2 9:09AM ; [facility] Hypertension 12/22/2020 Last Documented On 2 9:09AM ; [facility] No recent immunization for pneumococcal pneumonia 12/22/2020 Last Documented On 2 9:09AM ; [facility] Recent immunization for flu 12/22/2020 Last Documented On 2 9:09AM ; [facility] Family History Includes: Family History addressed during this encounter Description Last Updated Diabetes mellitus 12/22/2020 Last Documented On 2 9:09AM ; [facility] Family history of cancer 12/22/2020 Last Documented On 2 9:09AM ; [facility] Family history of heart disease 12/23/19 21 Last Documented On 2 9:09AM ; [facility] Family history of hypertension 1 Last Documented On 2 9:09AM ; [facility] Review of Systems Includes: Review of [...] Active Last Documented On 3 9:19AM ; [facility], [facility] Encounters Encounter Provider Location Date Check-In Time Check- Out Time Diagnosis Follow Up Abel Blanca PA-C [facility] 2 8:56AM 9:14AM Insurance Includes: Active Insurance Policies Plan Name Member ID Group # Subscriber Relationship Effect dillon Dates 1 - [employer] [facility] [id number] [id number] Jacob Self 06/18/19 21 - Unknown Clinical Notes Includes: Clinical Notes from this encounter No Clinical Notes Recorded
--- OUTSIDE RECORDS SUMMARY | 2025-04-09 16:38 | XMS_ITS | Clinical Summary ---
Author Organization [facility] Address [address] [place] [address] Phone Care Team Providers Care Middleware Administrator Name Role Phone Loc BERRY, Nikunj Thakur Unavailable [phone] Ana Laura Anton Primary Care Provider [phone] BENNETT ANTON Unavailable [phone] Reason for Referral Date Encounter Description Provider Reason for Referral 02/27/22 Follow Up Nikunj Monterroso MD Refe rral To Physician - for bp Reason for Visit and Chief Complaint The Chief Complaint is: Left shoulder pain Problems Includes: Problems addressed during this encounter and other active Problems All Visits Onset Date Resolved Date Provider Condition S tatus History of Joint Pain Shoulder Left 09/26/2021 Abel LION-Nery Active Last Documented On 2 9:20AM ; [facility] Joint Pain Shoulder Right 09/26/2021 Abel LION-Nery Active Last Documented On 2 9:20AM ; [facility] Joint Pain Shoulder 12/22/2020 Nikunj abreu MD Active Last Documented On 1 9:28AM ; [facility] Plan of Treatment NON SURGICAL PLAN: I reviewed the MR images that were brought in today with the patient. The patient's rotator cuff repair is intact. After going through physical exam I believe he manifested a frozen shoulder. I would like to administer a corticosteroid injection into his shoulder to help with symptoms. In addition to the injection I recommended getting him into formal outpatient physical therapy to work on motion. He is understanding of the treatment plan and wishes to proceed. We will plan to see him back as scheduled to reassess his response to the injection and therapy. All questions have been answered at this time. PHYSICAL THERAPY: frozen shoulder protocol INJECTION: intra articular - Last Documented On 03/03/2022 1:05PM ; [facility] 2 CC LIDOCAINE, 2 CC MARCAINE, 1 CC KENALOG (40 MG) The risk and benefits of the injection were outlined to the patient. They understand these and wished to proceed. The anterior portion of the shoulder over the glenohumeral joint was prepped with alcohol and Betadine. Using a 27-gauge needle and 5 cc syringe I pierced the skin breaching the anterior joint capsule. I then aspirated to confirm no presence of a vascular bed I then injected a solution of 40 mg Kenalog / 2 cc of lidocaine/2 cc of Marcaine into the joint. The patient tolerated this procedure well. - Last Documented On 03/03/2022 1:05PM ; [facility] Instructions to patient No intervention and counseli ng on cessation of tobacco use Last Documented On 2 10:42AM ; [facility] Lose weight Last Documented On 10:42AM ; [facility] Assessments Includes: Assessments from this encounter Findings Left shoulder rotator cuff repair, intact with - Last Documented On 03/03/2022 1:05PM ; [facility] Instructions Includes: Instructions from this encounter Instructions to patient No intervention and counseli ng on cessation of tobacco use Last Documented On 2 10:42AM ; [facility] Lose weight Last Documented On 10:42AM ; [facility] Medical Equipment - Implanted Devices Includes: Current Devices No Medical Equipment Recorded Medications Includes: Medications discussed during this encounter and other current Medications Discontinued / Stopped on this date Iman Jose APRN on 11/26/2020 amLODIPine Besy-Benazepril H Cl 5-20 MG Oral Capsule Provider: Iman Jose APRN Diagnosis: Last Documented On 11:23AM By Mohan Dunbar ; [facility] hydroCHLOROthiazide 12.5 MG Oral Capsule Provider: Iman Jose APRN Diagnosis: Last Documented On 11:23AM By Mohan Dunbar ; [facility] Current Medications (continue as prescribed) Diclofenac Sodium 75 MG Oral Tablet Delayed Release 01/18/2022 Provider: BENNETT ANTON Diagnosis: Last Documented On 2 11:23AM By Mohan Dunbar ; [facility] amLODIPine Besy-Benazepril H Cl 5-20 MG Oral Capsule 12/08/2021 Provider: ENRICO APODACA MD Diagnosis: Last Documented On 2 11:23AM By Mohan Dunbar ; [facility] hydroCHLOROthiazide 12.5 MG Oral Capsule 12/08/2021 Provider: ENRICO APODACA MD Diagnosis: Last Documented On 2 11:23AM By Mohan Dunbar ; [facility] Past Medications on file Gabapentin 100 MG Oral Capsule 06/20/2022 - 06/30/2022 Provider: Nikunj abreu MD Diagnosis: one capsule by mouth three times a day Last Documented On 3 11:26AM By Nikunj Monterroso ; [facility] HYDROcodone-Acetaminophen 5- 325 MG Oral Tablet 12/05/2021 - 12/12/2021 Provider: Nikunj Monterroso MD Diagnosis: one tablet by mouth three times a day Last Documented On 2 11:46AM By Nikunj Monterroso ; [facility] HYDROcodone-Acetaminophen 5- 325 MG Oral Tablet 11/28/2021 - 12/05/2021 Provider: Nikunj Monterroso MD Diagnosis: three times a day Last Documented On 2 4:09PM By Nikunj Monterroso ; [facility] oxyCODONE HCl 5 MG Oral Tablet 11/25/2021 - 11/30/2021 Provider: Nikunj abreu MD Diagnosis: 1 tablet by mouth 6 hours prn pain Last Documented On 2 3:38PM By Nikunj Monterroso ; [facility] oxyCODONE HCl 5 MG Oral Tablet 11/15/2021 - 11/20/2021 Provider: Nikunj abreu MD Diagnosis: 1 tablet by mouth 6 hours prn pain Last Documented On 2 9:01AM By Nikunj Monterroso ; [facility] Benzoyl Peroxide Wash 5% External Liquid 11/08/2021 - 11/09/2021 Provider: Nikunj abreu MD Diagnosis: use as directed by Dr. Monterroso Last Documented On 2 8:09AM By Tanesha Leon ; [facility] Ondansetron HCl 4 MG Oral Tablet 11/08/2021 - 11/18/2021 Provider: Nikunj abreu MD Diagnosis: 1 q 8 hours prn post op nausea Last Documented On 2 8:09AM By Tanesha Leon ; [facility], [facility] Benzoyl Peroxide Wash 5% External Liquid 12/24/2020 - 12/26/2020 Provider: Nikunj abreu MD Diagnosis: use as directed by provider beginning 2 days prior to surgery Last Documented On 1 8:48AM By Nissa Martinez ; [facility] Zofran 4 MG Oral Tablet 12/24/2020 - 01/03/2021 Provid er: Nikunj Monterroso MD Diagnosis: Take 1 tablet every 8 hrs prn post op nausea Last Documented On 1 8:49AM By Nissa Martinez ; [facility], [facility] Medications Administered Includes: Administered Medications from this encounter No Administered Medications Recorded Vital Signs Includes: Vital Signs from this encounter Vital Name 02/27/2022 11:08A Blood Pressure Sitting (mmHg) 119/78 Pulse Rate-Sitting (bpm) 66 Height (in) 73 Weight (lb) 223 Body Mass Index (kg/m2) 29.4 Body Surface Area (m2) 2.3 Note: cb Last Documented: On 02/27/2022 11:09A M ; [facility] Results Includes: Results discussed during this encounter No Results Recorded For Specified Dates History of Present Illness Includes: History of Present Illness from this encounter CHAITANYA Jacob is a 51 year old male. - Symptoms Giving away, [...] Pain specialist Medications used for this condition: 51 year old male presents [facility] for follow up on his left shoulder status post rotator cuff repair performed in October of this year. He states he had a fall after surgery while he was still in his sling post op. He has had a recent MRI of his shoulder and is here to go over the results. Social History Description Last Updated Tobacco non-user 02/27/2022 Last Documented On 2 1:05PM ; [facility] Not a smoker 01/31/2022 Last Documented On 2 10:42AM ; [facility] Non-smoker 12/22/2020 Last Documented On 2 10:42AM ; [facility] Alcohol use 12/22/2020 Last Documented On 2 10:42AM ; [facility] Caffeine use 12/22/2020 Last Documented On 2 10:42AM ; [facility] No recent change in diet 12/22/2020 Last Documented On 2 10:42AM ; [facility] Not a current smoker. 12/22/2020 Last Documented On 2 10:42AM ; [facility] Not exercising regularly 12/22/2020 Last Documented On 2 10:42AM ; [facility] Not using drugs 12/22/2020 Last Documented On 2 10:42AM ; [facility] Smoking Status Unknown Procedures and Surgical History Includes: Procedures from this encounter Procedures Code Diagnosis Performing Provider Service L ocation Service Date no intervention and counseling on cessation of tobacco use 4000F Last Documented On 2 10:42AM ; [facility] use of tobacco assessment performed 1000F Last Documented On 2 10:42AM ; [facility] patient not screened for future fall risk 3288F Last Documented On 2 10:42AM ; [facility] follow-up visit in one month with PCP fo r elevated BP Last Documented On 2 10:42AM ; [facility] referral to physician for bp Last Documented On 2 10:42AM ; [facility] an X-ray was performed 57701 Last Documented On 2 11:25AM ; [facility] an MRI was performed 20030 Last Documented On 2 11:25AM ; [facility] Medical History Includes: Medical History addressed during this encounter Description Last Updated History of Arthroscopy right shoulder Last Documented On 2 10:42AM ; [facility] Hypertension 12/22/2020 Last Documented On 2 10:42AM ; [facility] No recent immunization for pneumococcal pneumonia 12/22/2020 Last Documented On 2 10:42AM ; [facility] Recent immunization for flu 12/22/2020 Last Documented On 2 10:42AM ; [facility] Family History Includes: Family History addressed during this encounter Description Last Updated Diabetes mellitus 12/22/2020 Last Documented On 2 10:42AM ; [facility] Family history of cancer 12/22/2020 Last Documented On 2 10:42AM ; [facility] Family history of heart disease 12/23/19 21 Last Documented On 2 10:42AM ; [facility] Family history of hypertension 1 Last Documented On 2 10:42AM ; [facility] Review of Systems Includes: Review of Systems [...] Active Last Documented On 3 9:19AM ; [facility], [facility] Encounters Encounter Provider Location Date Check-In Time Check- Out Time Diagnosis Follow Up Nikunj Monterroso MD [facility] 2 10:42AM 11:47AM Insurance Includes: Active Insurance Policies Plan Name Member ID Group # Subscriber Relationship Effect dillon Dates 1 - [employer] [facility] [id number] [place] Jacob Self 06/18/19 21 - Unknown Clinical Notes Includes: Clinical Notes from this encounter No Clinical Notes Recorded
--- OUTSIDE RECORDS SUMMARY | 2025-04-09 16:39 | XMS_ITS ---
Author Organization [facility] , [facility] Address [address] [place] [address] Phone Care Team Providers Care Conservation Specialist Name Role Phone Loc BERRY, Nikunj Thakur Unavailable [phone] Ana Laura Anton Primary Care Provider [phone] BENNETT ANTON Unavailable [phone] Reason for Referral Date Encounter Description Provider Reason for Referral 04/11/22 Follow Up Abel Blanca PA-C Refe rral To Physician - for bp 02/27/22 Follow Up Nikunj Monterroso MD Refe rral To Physician - for bp 01/31/22 Post Op Jamilasaidan Blanca PA-C Refe rral To Physician - for bp; Referral To Physician 11/28/21 Post Op Abel LION-Nery Refe rral To Physician - for bp; Referral To Physician 10/17/21 Follow Up Nikunj Monterroso MD Refe rral To Physician - for bp 09/26/21 Follow Up Abel Blanca PA-C Refe rral To Physician - for bp 06/27/21 Follow Up Nikunj Monterroso MD Refe rral To Physician - for bp 05/16/21 Follow Up Eugene Marie PA-C Refer ral To Physician - for bp Problems Includes: Active, inactive, and resolved Problems All Visits Onset Date Resolved Date Provider Condition S tatus History of Joint Pain Shoulder Left 09/26/2021 Abel Blanca PA-C Active Last Documented On 2 9:20AM ; [facility], [facility] Joint Pain Shoulder Right 09/26/2021 Abel Blanca PA-C Active Last Documented On 2 9:20AM ; [facility] Joint Pain Shoulder 12/22/2020 Nikunj abreu MD Active Last Documented On 1 9:28AM ; [facility] Plan of Treatment Instructions to patient Lose weight Last Documented On 3 9:19AM ; [facility] Lose weight Last Documented On 3 11:09AM ; [facility] No intervention and counseli ng on cessation of tobacco use Last Documented On 2 9:09AM ; [facility] Lose weight Last Documented On 2 9:09AM ; [facility] No intervention and counseli ng on cessation of tobacco use Last Documented On 2 10:42AM ; [facility] Lose weight Last Documented On 2 10:42AM ; [facility] No intervention and counseli ng on cessation of tobacco use Last Documented On 2 9:30AM ; [facility] Lose weight Last Documented On 2 9:25AM ; [facility] Lose weight Last Documented On 2 2:33PM ; [facility] Lose weight Last Documented On 2 9:33AM ; [facility] Lose weight Last Documented On 2 9:19AM ; [facility] Lose weight Last Documented On 2 8:47AM ; [facility] Lose weight Last Documented On 1 11:06AM ; [facility] Lose weight Last Documented On 1 9:03AM ; [facility] Lose weight Last Documented On 1 1:39PM ; [facility] Lose weight Last Documented On 1 11:27AM ; [facility] Assessments Includes: Assessments for all patient encounters Findings Encounter Date Overweight Follow Up with Abel wood PA-C 09/18/2022 Last Documented On 4 2:39PM ; [facility] Overweight Follow Up with Nikunj woodward MD 06/20/2022 Last Documented On 4 2:41PM ; [facility] Instructions Includes: Instructions for all patient encounters Instructions to patient Lose weight Last Documented On 3 9:19AM ; [facility] Lose weight Last Documented On 3 11:09AM ; [facility] No intervention and counseli ng on cessation of tobacco use Last Documented On 2 9:09AM ; [facility] Lose weight Last Documented On 2 9:09AM ; [facility] No intervention and counseli ng on cessation of tobacco use Last Documented On 2 10:42AM ; [facility] Lose weight Last Documented On 2 10:42AM ; [facility] No intervention and counseli ng on cessation of tobacco use Last Documented On 2 9:30AM ; [facility] Lose weight Last Documented On 2 9:25AM ; [facility] Lose weight Last Documented On 2 2:33PM ; [facility] Lose weight Last Documented On 2 9:33AM ; [facility] Lose weight Last Documented On 2 9:19AM ; [facility] Lose weight Last Documented On 2 8:47AM ; [facility] Lose weight Last Documented On 1 11:06AM ; [facility] Lose weight Last Documented On 1 9:03AM ; [facility] Lose weight Last Documented On 1 1:39PM ; [facility] Lose weight Last Documented On 1 11:27AM ; [facility] Medical Equipment - Implanted Devices Includes: Current and historical Devices No Medical Equipment Recorded Medications Includes: Current and historical Medications Current Medications (continue as prescribed) Diclofenac Sodium 75 MG Oral Tablet Delayed Release 01/18/2022 Provider: BENNETT ANTON Diagnosis: Last Documented On 2 11:23AM By Mohan Dunbar ; [facility] amLODIPine Besy-Benazepril H Cl 5-20 MG Oral Capsule 12/08/2021 Provider: ENRICO APODACA MD Diagnosis: Last Documented On 2 11:23AM By Mohan Dunbar ; [facility] hydroCHLOROthiazide 12.5 MG Oral Capsule 12/08/2021 Provider: ENRICO APODACA MD Diagnosis: Last Documented On 2 11:23AM By Mohan Dunbar ; [facility] Past Medications on file Gabapentin 100 MG Oral Capsule 06/20/2022 - 06/30/2022 Provider: Nikunj abreu MD Diagnosis: one capsule by mouth three times a day Last Documented On 3 11:26AM By Nikunj Monterroso ; [facility] HYDROcodone-Acetaminophen 5- 325 MG Oral Tablet 12/05/2021 - 12/12/2021 Provider: Nikunj Monterroso MD Diagnosis: one tablet by mouth three times a day Last Documented On 2 11:46AM By Nikunj Monterroso ; [facility] HYDROcodone-Acetaminophen 5- 325 MG Oral Tablet 11/28/2021 - 12/05/2021 Provider: Nikunj Monterroso MD Diagnosis: three times a day Last Documented On 2 4:09PM By Nikunj Monterroso ; [facility], [facility] oxyCODONE HCl 5 MG Oral Tablet 11/25/2021 - 11/30/2021 Provider: Nikunj abreu MD Diagnosis: 1 tablet by mouth 6 hours prn pain Last Documented On 2 3:38PM By Nikunj Monterroso ; [facility], [facility] oxyCODONE HCl 5 MG Oral Tablet 11/15/2021 - 11/20/2021 Provider: Nikunj abreu MD Diagnosis: 1 tablet by mouth 6 hours prn pain Last Documented On 2 9:01AM By Nikunj Monterroso ; [facility] Benzoyl Peroxide Wash 5% External Liquid 11/08/2021 - 11/09/2021 Provider: Nikunj abreu MD Diagnosis: use as directed by Dr. Monterroso Last Documented On 2 8:09AM By Tanesha Armando [facility] Ondansetron HCl 4 MG Oral Tablet 11/08/2021 - 11/18/2021 Provider: Nikunj abreu MD Diagnosis: 1 q 8 hours prn post op nausea Last Documented On 2 8:09AM By Tanesha Leon ; [facility] Benzoyl Peroxide Wash 5% External Liquid 12/24/2020 - 12/26/2020 Provider: Nikunj abreu MD Diagnosis: use as directed by provider beginning 2 days prior to surgery Last Documented On 1 8:48AM By Nissa Martinez ; [facility], [facility] Zofran 4 MG Oral Tablet 12/24/2020 - 01/03/2021 Provid er: Nikunj Monterroso MD Diagnosis: Take 1 tablet every 8 hrs prn post op nausea Last Documented On 1 8:49AM By Nissa Martinez ; [facility] amLODIPine Besy-Benazepril H Cl 5-20 MG Oral Capsule 11/26/2020 - 02/27/2022 Provider: Iman Jose APRN Diagnosis: Last Documented On 2 11:23AM By Mohan Dunbar ; [facility], [facility] hydroCHLOROthiazide 12.5 MG Oral Capsule 11/26/2020 - 02/27/2022 Provider: Iman Jose APRN Diagnosis: Last Documented On 2 11:23AM By Mohan Dunbar ; [facility], [facility] Medications Administered Includes: Administered Medications in patient's chart No Administered Medications Recorded Results Includes: Results from 04/09/2024 through 04/09/2025 No Results Recorded For Specified Dates History of Present Illness History of Present Illness not supported for this document type No History of Present Illness Recorded Social History Description Last Updated No recent change in diet 09/07/2023 Last Documented On 4 2:39PM ; [facility] Not a current smoker. 09/07/2023 Last Documented On 4 2:39PM ; [facility] Tobacco non-user 02/27/2022 Last Documented On 2 1:05PM ; [facility] Not a smoker 01/31/2022 Last Documented On 2 1:20PM ; [facility] Non-smoker 12/22/2020 Last Documented On 1 2:58PM ; [facility] Alcohol use 12/22/2020 Last Documented On 1 2:58PM ; [facility] Caffeine use 12/22/2020 Last Documented On 1 2:58PM ; [facility] No recent change in diet 12/22/2020 Last Documented On 1 2:58PM ; [facility] Not a current smoker. 12/22/2020 Last Documented On 1 2:58PM ; [facility] Not exercising regularly 12/22/2020 Last Documented On 1 2:58PM ; [facility] Not using drugs 12/22/2020 Last Documented On 1 2:58PM ; [facility] Smoking Status Unknown Medical History Includes: Medical History in patient's chart Description Last Updated History of Arthroscopy right shoulder Last Documented On 1 2:58PM ; [facility] Hypertension 12/22/2020 Last Documented On 1 2:58PM ; [facility] No recent immunization for pneumococcal pneumonia 12/22/2020 Last Documented On 1 2:58PM ; [facility] Recent immunization for flu 12/22/2020 Last Documented On 1 2:58PM ; [facility] Family History Includes: Family History in patient's chart Description Last Updated Diabetes mellitus 12/22/2020 Last Documented On 1 2:58PM ; [facility] Family history of cancer 12/22/2020 Last Documented On 1 2:58PM ; [facility] Family history of heart disease 12/23/19 21 Last Documented On 1 2:58PM ; [facility] Family history of hypertension 1 Last Documented On 1 2:58PM ; [facility] Review of Systems Review of Systems not supported for this document type No Review of Systems Recorded Mental Status Description Anxiety Functional Status No Functional Status Recorded Physical Exam Physical Exam not supported for this document type No Physical Exam Recorded Immunizations Includes: Immunizations in patient's chart Vaccine Dose # Date Site Reaction(s) Status Source Influenza 1 10/17/2021 Complete (Refused - Patient objection) [facility] Last Documented On 2 9:36AM ; [facility] PCV (Pneumovax 23) 1 10/17/2021 Complete (Refused - Patient objection) [facility] Last Documented On 2 9:36AM ; [facility] Td 1 10/17/2021 Complete (Refused - Patient objection) [facility] Last Documented On 2 9:36AM ; [facility] Allergies Includes: Active, inactive, and resolved Allergies Substance Type Reaction Onset Date Resolved Date Statu s Tylenol Extra Strength Allergy Blood Disorder 09/26/2021 Active Last Documented On 3 9:19AM ; [facility] Insurance Includes: Active Insurance Policies Plan Name Member ID Group # Subscriber Relationship Effect dillon Dates 1 - [employer]na [facility] [id number] Modesto Jacob Vinnie 06/18/19 21 - Unknown Clinical Notes Includes: Signed Clinical Notes starting from 06/01/2022 No Clinical Notes Recorded
--- OUTSIDE RECORDS SUMMARY | 2025-04-09 16:39 | XMS_ITS | Clinical Summary ---
Author Organization [facility] , [facility] Address [address] [place] [address] Phone Care Team Providers Care Shell Machine Operator Name Role Phone Loc BERRY, Nikunj Thakur Unavailable [phone] Ana Laura Anton Primary Care Provider [phone] BENNETT ANTON Unavailable [phone] Reason for Referral Date Encounter Description Provider Reason for Referral 01/31/22 Post Op Abel LION-Nery Refe rral To Physician - for bp; Referral To Physician Reason for Visit and Chief Complaint The Chief Complaint is: Left shoulder pain Problems Includes: Problems addressed during this encounter and other active Problems All Visits Onset Date Resolved Date Provider Condition S tatus History of Joint Pain Shoulder Left 09/26/2021 Abel Blanca PA-C Active Last Documented On 2 9:20AM ; [facility] Joint Pain Shoulder Right 09/26/2021 Abel Blanca PA-C Active Last Documented On 2 9:20AM ; [facility] Joint Pain Shoulder 12/22/2020 Nikunj abreu MD Active Last Documented On 1 9:28AM ; [facility], [facility] Plan of Treatment Patient shows quite a bit of pain and limitation he has had recent trauma postoperatively. He has had decline in function since then. I recommended MRI to evaluate his repair - Last Documented On 01/31/2022 1:20PM ; [facility], [facility] Instructions to patient No intervention and counseli ng on cessation of tobacco use Last Documented On 2 9:30AM ; [facility] Lose weight Last Documented On 2 9:25AM ; [facility], [facility] Assessments Includes: Assessments from this encounter Findings Left cuff repair with concern of re-tear - Last Documented On 01/31/2022 1:20PM ; [facility], [facility] Instructions Includes: Instructions from this encounter Instructions to patient No intervention and counsellisa johnson on cessation of tobacco use Last Documented On 2 9:30AM ; [facility], [facility] Lose weight Last Documented On 2 9:25AM ; [facility], [facility] Medical Equipment - Implanted Devices Includes: Current Devices No Medical Equipment Recorded Medications Includes: Medications discussed during this encounter and other current Medications Current Medications (continue as prescribed) Diclofenac Sodium 75 MG Oral Tablet Delayed Release 01/18/2022 Provider: BENNETT ANTON Diagnosis: Last Documented On 2 11:23AM By Mohan Dunbar ; [facility] amLODIPine Besy-Benazepril H Cl 5-20 MG Oral Capsule 12/08/2021 Provider: ENRICO APODACA MD Diagnosis: Last Documented On 2 11:23AM By Mohan Dunbar ; [facility] hydroCHLOROthiazide 12.5 MG Oral Capsule 12/08/2021 Provider: ENRICO APODACA MD Diagnosis: Last Documented On 2 11:23AM By Mohan Dunbar ; [facility] Past Medications on file Gabapentin 100 MG Oral Capsule 06/20/2022 - 06/30/2022 Provider: Nikunj abreu MD Diagnosis: one capsule by mouth three times a day Last Documented On 3 11:26AM By Nikunj Monterroso ; [facility] HYDROcodone-Acetaminophen 5- 325 MG Oral Tablet 12/05/2021 - 12/12/2021 Provider: Nikunj Monterroso MD Diagnosis: one tablet by mouth three times a day Last Documented On 2 11:46AM By Nikunj Monterroso ; [facility] HYDROcodone-Acetaminophen 5- 325 MG Oral Tablet 11/28/2021 - 12/05/2021 Provider: Nikunj Monterroso MD Diagnosis: three times a day Last Documented On 2 4:09PM By Nikunj Monterroso ; [facility] oxyCODONE HCl 5 MG Oral Tablet 11/25/2021 - 11/30/2021 Provider: Nikunj abreu MD Diagnosis: 1 tablet by mouth 6 hours prn pain Last Documented On 2 3:38PM By Nikunj Armando [facility] oxyCODONE HCl 5 MG Oral Tablet 11/15/2021 - 11/20/2021 Provider: Nikunj abreu MD Diagnosis: 1 tablet by mouth 6 hours prn pain Last Documented On 2 9:01AM By Nikunj Armando [facility] Benzoyl Peroxide Wash 5% External Liquid 11/08/2021 - 11/09/2021 Provider: Nikunj abreu MD Diagnosis: use as directed by Dr. Monterroso Last Documented On 2 8:09AM By Tanesha Armando [facility] Ondansetron HCl 4 MG Oral Tablet 11/08/2021 - 11/18/2021 Provider: Nikunj abreu MD Diagnosis: 1 q 8 hours prn post op nausea Last Documented On 2 8:09AM By Tanesha Armando [facility] Benzoyl Peroxide Wash 5% External Liquid 12/24/2020 - 12/26/2020 Provider: Nikunj abreu MD Diagnosis: use as directed by provider beginning 2 days prior to surgery Last Documented On 1 8:48AM By Nissa Armando [facility] Zofran 4 MG Oral Tablet 12/24/2020 - 01/03/2021 Provid er: Nikunj Monterroso MD Diagnosis: Take 1 tablet every 8 hrs prn post op nausea Last Documented On 1 8:49AM By Nissa Armando [facility] Medications Administered Includes: Administered Medications from this encounter No Administered Medications Recorded Vital Signs Includes: Vital Signs from this encounter Vital Name 01/31/2022 09:30A Blood Pressure Sitting (mmHg) 149/102 Pulse Rate-Sitting (bpm) 86 Height (in) 73 Weight (lb) 223 Body Mass Index (kg/m2) 29.4 Body Surface Area (m2) 2.3 Note: hdv Last Documented: On 01/31/2022 9:30AM ; [facility] Results Includes: Results discussed during this encounter No Results Recorded For Specified Dates History of Present Illness Includes: History of Present Illness from this encounter HPI Modesto Jacob is a 51 year old male. - Allergy list reviewed - Problem list reviewed - Medication reconciliation performed - Medication list reviewed with patient Patient is in today for follow-up on his rotator cuff repair. He said he had a fall about a month ago he really has not recovered from. He says his pain is increased and he can barely lift his arm postoperatively Social History Description Last Updated Not a smoker 01/31/2022 Last Documented On 2 1:20PM ; [facility] Non-smoker 12/22/2020 Last Documented On 2 9:25AM ; [facility] Alcohol use 12/22/2020 Last Documented On 2 9:25AM ; [facility] Caffeine use 12/22/2020 Last Documented On 2 9:25AM ; [facility] No recent change in diet 12/22/2020 Last Documented On 2 9:25AM ; [facility] Not a current smoker. 12/22/2020 Last Documented On 2 9:25AM ; [facility] Not exercising regularly 12/22/2020 Last Documented On 2 9:25AM ; [facility] Not using drugs 12/22/2020 Last Documented On 2 9:25AM ; [facility] Smoking Status Unknown Procedures and Surgical History Includes: Procedures from this encounter Procedures Code Diagnosis Performing Provider Service L ocation Service Date no intervention and counseling on cessation of tobacco use 4000F Last Documented On 2 9:30AM ; [facility] use of tobacco assessment performed 1000F Last Documented On 2 9:25AM ; [facility] patient not screened for future fall risk 3288F Last Documented On 2 9:30AM ; [facility] follow-up visit in one month with PCP fo r elevated BP Last Documented On 2 9:25AM ; [facility] referral to physician for bp Last Documented On 2 9:25AM ; [facility] referral to physician Last Documented On 2 9:25AM ; [facility] Medical History Includes: Medical History addressed during this encounter Description Last Updated History of Arthroscopy right shoulder Last Documented On 2 9:25AM ; [facility] Hypertension 12/22/2020 Last Documented On 2 9:25AM ; [facility] No recent immunization for pneumococcal pneumonia 12/22/2020 Last Documented On 2 9:25AM ; [facility] Recent immunization for flu 12/22/2020 Last Documented On 2 9:25AM ; [facility] Family History Includes: Family History addressed during this encounter Description Last Updated Diabetes mellitus 12/22/2020 Last Documented On 2 9:25AM ; [facility] Family history of cancer 12/22/2020 Last Documented On 2 9:25AM ; [facility] Family history of heart disease 12/23/19 21 Last Documented On 2 9:25AM ; [facility] Family history of hypertension 1 Last Documented On 2 9:25AM ; [facility] Review of Systems Includes: Review of [...] Active Last Documented On 3 9:19AM ; [facility] Encounters Encounter Provider Location Date Check-In Time Check- Out Time Diagnosis Post Op Abel Blanca PA-C [facility] 2 9:25AM 10:02AM Insurance Includes: Active Insurance Policies Plan Name Member ID Group # Subscriber Relationship Effect dillon Dates 1 - [employer] [facility] [id number] Mod[place] Jacob Self 06/18/19 21 - Unknown Clinical Notes Includes: Clinical Notes from this encounter No Clinical Notes Recorded
--- OUTSIDE RECORDS SUMMARY | 2025-04-09 16:40 | XMS_ITS ---
Care Plan - [facility], [facility] Created on: April 09, 2025 Modesto Jacob : 1970 Sex: Male Author Organization [facility] , [facility] Address [address] [place] [address] Phone Care Team Providers Care Linen Sorter Name Role Phone Loc BERRY, Nikunj Thakur Unavailable [phone] Ana Laura Anton Primary Care Provider [phone] BENNETT ANTON Unavailable [phone]
--- OUTSIDE RECORDS SUMMARY | 2025-04-09 16:41 | XMS_ITS | Clinical Summary ---
Author Organization [facility] Address [address] [place] [address] Care Team Providers Care Glue Jointer Operator Name Role Phone Cecil Gayle MD Primary Care Provider [phone] Allergies No known active allergies Medications hydroCHLOROthia [...] 1991 COLOGUARD 2017 COLON CANCER SCREENING 5 YEAR SIGMOIDOSCOPY 2017 COLONOSCOPY 2017 [address] CANCER SCREENING 2017 CT COLONOGRAPHY 2017 FECAL OCCULT BLOOD TEST 2017 FIT Testing (1 year) 2017 ANNUAL PHYSICAL 12/27/2020 HEPATITIS C SCREENING 12/27/2020 Pneumococcal Vaccine 50+ (1 of 1 - PCV) 2022 ZOSTER VACCINE (1 of 2) 2022 INFLUENZA VACCINE 01/16/2025 Medical Devices Implanted Type Area Intermediate Manager Device Identifier Shelf Expiration Date Model / Serial / Lot Sys Sut/Anch Biocomp Speedbridge 4.85 12.5 - [id number] Implanted:Qty: 1 on 11/10/2021 by Nikunj Monterroso MD at [facility] Implant Left: Shoulder ARTHREX [id number] 05/17/2025 [id number] / / [id number] Sut Fw #2 W/Tpr Ndl 06/19 Cir 38in 97cm 26.5mm [place] - [id number] Implanted:Qty: 1 on 11/10/2021 by Nikunj Monterroso MD at [facility] Implant Left: Shoulder ARTHREX [id number] / / Insurance Advance Directives Documents on File Type Date Recorded Patient Network Coordinator Expl anation LIVING WILL - SCAN 12/30/2020 1:49 PM MARIANO FRANZ, 12/30/2020 Care Teams Glue Jointer Operator Relationship Specialty Start Date End Date Cecil Gayle MD [address] [place] [address] PCP - General Family Medicine 11/08/21
--- NOTE | 2025-04-09 17:00 | MR_ITS ---
PROCEDURE INFORMATION: Exam: MR Left Upper Extremity Joint Without Contrast; Shoulder Exam date and time: 04/09/2025 5:05 PM Age: 55 years old Clinical indication: Pain; Shoulder; Left; Additional info: Left shoulder injury, decreased range of motion TECHNIQUE: Imaging protocol: Magnetic resonance imaging of the left upper extremity without contrast. Exam focused on the shoulder. COMPARISON: MR SHOULDER LT WO CON 09/23/2021 2:31 PM FINDINGS: Bones/joints: Ftgt-es-tsgxeagt acromioclavicular joint degenerative change with edqs-bw-dawxtput capsular edema and thickening. Ixyz-dp-gvplwzpo undersurface spurring with subacromial impingement. Lchr-rn-tsoqidsf marrow edema within distal clavicle and acromion. Prior rotator cuff repair, with suture anchors in the humeral head.. Subchondral geode in the greater tuberosity measuring 9 x 12 mm . No acute fracture. Moderate to severe cartilage thinning in the humeral head. Mild to cephalad migration of the humeral head relative to the glenoid inferior glenoid chronic rotator cuff pathology. Wkhp-sj-fgieiira cartilage thinning and fraying in the glenoid, most prominently central to inferior portion, some of which is subjacent to a medial humeral head/neck spur. Glenoid labrum: Mild thinning of the anterior superior labrum, a component of which may be due to prior debridement. The anterior inferior labrum demonstrates mild chronic degeneration. Mild chronic degeneration of the posterior labrum, with tiny tear in the central portion. Supraspinatus tendon: Moderate tendinosis of the supraspinatus, with some retracted full-thickness tear in the posterior fibers, measuring approximately 6 mm anterior-posterior by 9 mm medial to lateral. Associated trace subacromial/subdeltoid fluid. Additional multifocal articular and bursal sided fraying as well as interstitial tearing in the anterior mid fibers. Trace interstitial fluid tracks up to the myotendinous junction over the glenoid. Infraspinatus tendon: Lnjc-jf-ojyygsjg tendinosis of the infraspinatus tendon, with kymy-nj-gfsnqoey articular and bursal sided fraying . Patchy interstitial tearing in some anterior fibers. Subscapularis tendon: Suture anchor repair of the subscapularis tendon fibers overlying the greater trochanter, with associated lnvu-bv-jhizohgx scarring, and mvzb-bi-uykvolec (predominantly bursal sided) fraying of the fibers over the greater trochanter. Teres minor tendon: Unremarkable. No evidence of tear. Tendon of biceps brachii: Moderate tendinosis of the intra-articular biceps including the anchor. Glenohumeral ligaments: Unremarkable. Soft tissues: Otherwise no acute abnormality. IMPRESSION: 1. No acute fracture. 2. Xsne-vj-ytwqizjv acromioclavicular joint degenerative change with caea-sr-ivxwurhz capsular edema and thickening. Hpvy-fr-effrurrw undersurface spurring with subacromial impingement. Tsba-mb-spztaiux marrow edema within distal clavicle and acromion. 3. Moderate tendinosis of the supraspinatus, with some retracted full-thickness tear in the posterior fibers, measuring approximately 6 mm anterior-posterior by 9 mm medial to lateral. Associated trace subacromial/subdeltoid fluid. Additional multifocal articular and bursal sided fraying as well as interstitial tearing in the anterior mid fibers. Trace interstitial fluid tracks up to the myotendinous junction over the glenoid. 4. Vfbt-yo-kyxfndvy tendinosis of the infraspinatus tendon, with ticp-lf-yzheymex articular and bursal sided fraying . Patchy interstitial tearing in some anterior fibers. 5. Suture anchor repair of the subscapularis tendon fibers overlying the greater trochanter, with associated fobl-ch-jamhhyht scarring, and ldjc-jh-vtzvaefr (predominantly bursal sided) fraying of the fibers over the greater trochanter. Mild thinning of the anterior superior labrum, a component of which may be due to prior debridement. The anterior inferior labrum demonstrates mild chronic degeneration. Mild chronic degeneration of the posterior labrum, with tiny tear in the central portion. 6. Moderate tendinosis of the intra-articular biceps including the anchor.
== END 2025-04-09 23:59 | disposition home or self-care (01) ==
LOC: RAD 16:34
PROVIDERS: PCP Nurse Practitioner Family; Visit Provider Nurse Practitioner Family
DX: M75.122 Complete rotator cuff tear or rupture of left shoulder, not specified as traumatic (principal); M19.012 Primary osteoarthritis, left shoulder; M75.42 Impingement syndrome of left shoulder; M75.82 Other shoulder lesions, left shoulder; M77.8 Other enthesopathies, not elsewhere classified; M75.22 Bicipital tendinitis, left shoulder; Z98.890 Other specified postprocedural states
CPT/HCPCS: 73221